=== PATIENT | male | born 1960 | race Caucasian/White ===

== ENCOUNTER → 2023-12-01 09:35 | Outpatient (REF) | payer OTHER, SELFPAY ==
[2023-12-01 10:26] LABS: % Basophils 0.7 % (0-2); % Eosinophils 14.6 % (0-6); % Immature Granulocytes 0.4 % (0-0.5); % Lymphocytes 8.5 % (20.5-51.1); % Monocytes 8.1 % (1.7-9.3); % Neutrophils 67.7 % (42.2-75.2); Absolute Basophils 0.1 10^3/uL (0-0.2); Absolute Eosinophils 1.1 10^3/uL (0-0.7); Absolute Lymphocytes 0.6 10^3/uL (1.2-3.4); Absolute Monocytes 0.6 10^3/uL (0.1-0.6); Absolute Neutrophils 4.9 10^3/uL (1.4-6.5); Hematocrit 33.9 % (39.0-52.0); Hemoglobin 11.1 g/dL (13.0-18.0); Mean Corp Hgb Conc. 32.7 g/dL (33.0-37.0); Mean Corpuscular Hgb 32.8 pg (27.0-31.0); Mean Corpuscular Volume 100.3 fL (80.0-94.0); Mean Platelet Volume 9.2 fL (7.4-10.4); Nucleated Red Blood Cells % 0 % (-); Platelet Count 170 10^3/uL (130-400); Red Blood Cell Count 3.38 10^6/uL (4.70-6.10); Red Cell Dist. Width 14.6 % (11.5-14.5); White Blood Cell Count 7.2 10^3/uL (4.8-10.8)
[2023-12-01 10:54] LABS: ALT (SGPT) 14 U/L (0-50); AST (SGOT) 19 U/L (17-59); Albumin 3.9 g/dl (3.5-5.0); Alkaline Phosphatase 88 U/L (38-126); Blood Urea Nitrogen 23 mg/dl (9-20); Calcium 9.6 mg/dl (8.4-10.2); Carbon Dioxide 26 mmol/L (22-30); Chloride 102 mmol/L (98-107); Glucose 90 mg/dl (70-99); Potassium 4.1 mmol/L (3.5-5.1); Sodium 138 mmol/L (135-145); Total Bilirubin 0.5 mg/dl (0.2-1.3); Total Protein 7.1 g/dl (6.3-8.2); eGFR > 60.00
== END ==
LOC: REG 09:35
PROVIDERS: ATTENDING PHYSICIAN Internal Medicine Hematology & Oncology; FAMILY PHYSICIAN Family Medicine
DX: C11.3 Malignant neoplasm of anterior wall of nasopharynx (principal); R53.82 Chronic fatigue, unspecified; D63.0 Anemia in neoplastic disease
CPT/HCPCS: 36415; 80053; 85025

== ENCOUNTER → 2023-12-04 09:27 | Outpatient (REF) | payer OTHER, SELFPAY ==
[2023-12-04 10:41] LABS: Uric Acid 6.6 mg/dl (3.5-8.5)
[2023-12-04 11:12] LABS: TSH Reflex To Free T4 2.69 uIU/ml (0.47-4.68)
== END ==
LOC: OIDL 09:27
PROVIDERS: ATTENDING PHYSICIAN Internal Medicine Hematology & Oncology
DX: C11.3 Malignant neoplasm of anterior wall of nasopharynx (principal)
CPT/HCPCS: 84443; 84550

== ENCOUNTER → 2023-12-13 07:48 | Outpatient (REF) | payer OTHER, SELFPAY | LOC: RAD 07:48 | PROVIDERS: ATTENDING PHYSICIAN Surgery Vascular Surgery; FAMILY PHYSICIAN Family Medicine | DX: I73.9 Peripheral vascular disease, unspecified (principal) | CPT/HCPCS: 93922; 93925 ==

== ENCOUNTER → 2023-12-31 08:33 | Outpatient (REF) | payer OTHER, SELFPAY ==
[2023-12-31 10:19] LABS: % Basophils 0.3 % (0-2); % Eosinophils 15.1 % (0-6); % Immature Granulocytes 0.5 % (0-0.5); % Lymphocytes 10.4 % (20.5-51.1); % Monocytes 7.8 % (1.7-9.3); % Neutrophils 65.9 % (42.2-75.2); Absolute Eosinophils 0.9 10^3/uL (0-0.7); Absolute Lymphocytes 0.6 10^3/uL (1.2-3.4); Absolute Monocytes 0.5 10^3/uL (0.1-0.6); Absolute Neutrophils 4.1 10^3/uL (1.4-6.5); Hematocrit 35.3 % (39.0-52.0); Hemoglobin 11.5 g/dL (13.0-18.0); Mean Corp Hgb Conc. 32.6 g/dL (33.0-37.0); Mean Corpuscular Hgb 32.3 pg (27.0-31.0); Mean Corpuscular Volume 99.2 fL (80.0-94.0); Mean Platelet Volume 9.9 fL (7.4-10.4); Nucleated Red Blood Cells % 0 % (-); Platelet Count 152 10^3/uL (130-400); Red Blood Cell Count 3.56 10^6/uL (4.70-6.10); Red Cell Dist. Width 13.5 % (11.5-14.5); White Blood Cell Count 6.2 10^3/uL (4.8-10.8)
[2023-12-31 10:51] LABS: Blood Urea Nitrogen 17 mg/dl (9-20); Iron 91 ug/dl (49-181)
[2023-12-31 11:02] LABS: Percent Saturation 44 % (20-50); Total Iron Binding Capacity 204 ug/dl (261-462)
== END ==
LOC: REG 08:33
PROVIDERS: ATTENDING PHYSICIAN Nurse Practitioner Adult Health; FAMILY PHYSICIAN Family Medicine
DX: C11.3 Malignant neoplasm of anterior wall of nasopharynx (principal); R53.82 Chronic fatigue, unspecified; D63.0 Anemia in neoplastic disease
CPT/HCPCS: 36415; 82565; 82728; 83540; 83550; 84520; 85025

== ENCOUNTER 2024-01-01 10:53 | Outpatient (RCR) | payer OTHER, SELFPAY ==
[2024-01-01 09:43] LABS: ALT (SGPT) 47 U/L (0-50); AST (SGOT) 39 U/L (17-59); Albumin 4.4 g/dl (3.5-5.0); Alkaline Phosphatase 112 U/L (38-126); Blood Urea Nitrogen 16 mg/dl (9-20); Calcium 9.4 mg/dl (8.4-10.2); Carbon Dioxide 27 mmol/L (22-30); Chloride 103 mmol/L (98-107); Glucose 96 mg/dl (70-99); Potassium 3.8 mmol/L (3.5-5.1); Sodium 137 mmol/L (135-145); Total Bilirubin 0.6 mg/dl (0.2-1.3); Total Protein 7.9 g/dl (6.3-8.2); eGFR 51.99
[2024-01-01 10:09] LABS: TSH Reflex To Free T4 2.49 uIU/ml (0.47-4.68)
== END 2024-01-27 23:59 | disposition home or self-care (01) ==
LOC: OID 10:53
PROVIDERS: ATTENDING PHYSICIAN Internal Medicine Hematology & Oncology; FAMILY PHYSICIAN Family Medicine
DX: C11.3 Malignant neoplasm of anterior wall of nasopharynx (principal)
CPT/HCPCS: 80053; 84443

== ENCOUNTER → 2024-01-26 08:21 | Outpatient (REF) | payer OTHER, SELFPAY ==
[2024-01-26 10:05] LABS: ALT (SGPT) < 10 U/L (0-50); AST (SGOT) 16 U/L (17-59); Alkaline Phosphatase 101 U/L (38-126); Blood Urea Nitrogen 13 mg/dl (9-20); Calcium 9.6 mg/dl (8.4-10.2); Carbon Dioxide 29 mmol/L (22-30); Chloride 100 mmol/L (98-107); Glucose 81 mg/dl (70-99); Potassium 3.9 mmol/L (3.5-5.1); Sodium 137 mmol/L (135-145); Total Bilirubin 0.4 mg/dl (0.2-1.3); Total Protein 7.3 g/dl (6.3-8.2); eGFR > 60.00
[2024-01-26 10:20] LABS: % Eosinophils 18.6 % (0-6); % Immature Granulocytes 0.4 % (0-0.5); % Monocytes 7.4 % (1.7-9.3); % Neutrophils 62.6 % (42.2-75.2); Absolute Basophils 0.1 10^3/uL (0-0.2); Absolute Eosinophils 1.3 10^3/uL (0-0.7); Absolute Lymphocytes 0.7 10^3/uL (1.2-3.4); Absolute Monocytes 0.5 10^3/uL (0.1-0.6); Absolute Neutrophils 4.5 10^3/uL (1.4-6.5); Hematocrit 33.5 % (39.0-52.0); Hemoglobin 11.1 g/dL (13.0-18.0); Mean Corp Hgb Conc. 33.1 g/dL (33.0-37.0); Mean Corpuscular Hgb 32.3 pg (27.0-31.0); Mean Corpuscular Volume 97.4 fL (80.0-94.0); Mean Platelet Volume 9.6 fL (7.4-10.4); Nucleated Red Blood Cells % 0 % (-); Platelet Count 199 10^3/uL (130-400); Red Blood Cell Count 3.44 10^6/uL (4.70-6.10); Red Cell Dist. Width 13.3 % (11.5-14.5); White Blood Cell Count 7.2 10^3/uL (4.8-10.8)
[2024-01-26 10:32] LABS: TSH Reflex To Free T4 0.99 uIU/ml (0.47-4.68)
== END ==
LOC: REG 08:21
PROVIDERS: ATTENDING PHYSICIAN Internal Medicine Hematology & Oncology; FAMILY PHYSICIAN Family Medicine
DX: C11.3 Malignant neoplasm of anterior wall of nasopharynx (principal); R53.82 Chronic fatigue, unspecified; D63.0 Anemia in neoplastic disease
CPT/HCPCS: 36415; 80053; 84443; 85025

== ENCOUNTER → 2024-02-23 08:34 | Outpatient (REF) | payer OTHER, SELFPAY ==
[2024-02-23 10:33] LABS: % Basophils 0.6 % (0-2); % Eosinophils 13.9 % (0-6); % Immature Granulocytes 0.3 % (0-0.5); % Lymphocytes 9.1 % (20.5-51.1); % Monocytes 8.4 % (1.7-9.3); % Neutrophils 67.7 % (42.2-75.2); Absolute Lymphocytes 0.6 10^3/uL (1.2-3.4); Absolute Monocytes 0.6 10^3/uL (0.1-0.6); Absolute Neutrophils 4.7 10^3/uL (1.4-6.5); Hematocrit 31.7 % (39.0-52.0); Hemoglobin 10.5 g/dL (13.0-18.0); Mean Corp Hgb Conc. 33.1 g/dL (33.0-37.0); Mean Corpuscular Hgb 31.9 pg (27.0-31.0); Mean Corpuscular Volume 96.4 fL (80.0-94.0); Mean Platelet Volume 9.2 fL (7.4-10.4); Nucleated Red Blood Cells % 0 % (-); Platelet Count 189 10^3/uL (130-400); Red Blood Cell Count 3.29 10^6/uL (4.70-6.10); Red Cell Dist. Width 13.3 % (11.5-14.5); White Blood Cell Count 6.9 10^3/uL (4.8-10.8)
[2024-02-23 10:57] LABS: ALT (SGPT) < 10 U/L (0-50); AST (SGOT) 16 U/L (17-59); Alkaline Phosphatase 98 U/L (38-126); Blood Urea Nitrogen 17 mg/dl (9-20); Calcium 9.7 mg/dl (8.4-10.2); Carbon Dioxide 25 mmol/L (22-30); Chloride 103 mmol/L (98-107); Glucose 88 mg/dl (70-99); Potassium 3.8 mmol/L (3.5-5.1); Sodium 137 mmol/L (135-145); Total Bilirubin 0.6 mg/dl (0.2-1.3); Total Protein 7.2 g/dl (6.3-8.2); eGFR 51.67
[2024-02-23 11:25] LABS: TSH Reflex To Free T4 1.18 uIU/ml (0.47-4.68)
== END ==
LOC: REG 08:34
PROVIDERS: ATTENDING PHYSICIAN Internal Medicine Hematology & Oncology
DX: C11.3 Malignant neoplasm of anterior wall of nasopharynx (principal); R53.82 Chronic fatigue, unspecified; D63.0 Anemia in neoplastic disease
CPT/HCPCS: 36415; 80053; 84443; 85025

== ENCOUNTER → 2024-03-22 08:08 | Outpatient (REF) | payer OTHER, SELFPAY ==
[2024-03-22 09:12] LABS: % Basophils 0.6 % (0-2); % Eosinophils 14.7 % (0-6); % Immature Granulocytes 0.4 % (0-0.5); % Lymphocytes 8.3 % (20.5-51.1); % Monocytes 7.1 % (1.7-9.3); % Neutrophils 68.9 % (42.2-75.2); Absolute Basophils 0.1 10^3/uL (0-0.2); Absolute Eosinophils 1.1 10^3/uL (0-0.7); Absolute Lymphocytes 0.6 10^3/uL (1.2-3.4); Absolute Monocytes 0.6 10^3/uL (0.1-0.6); Absolute Neutrophils 5.3 10^3/uL (1.4-6.5); Hematocrit 30.1 % (39.0-52.0); Hemoglobin 10.1 g/dL (13.0-18.0); Mean Corp Hgb Conc. 33.6 g/dL (33.0-37.0); Mean Corpuscular Hgb 32.1 pg (27.0-31.0); Mean Corpuscular Volume 95.6 fL (80.0-94.0); Mean Platelet Volume 9.3 fL (7.4-10.4); Nucleated Red Blood Cells % 0 % (-); Platelet Count 187 10^3/uL (130-400); Red Blood Cell Count 3.15 10^6/uL (4.70-6.10); Red Cell Dist. Width 13.3 % (11.5-14.5); White Blood Cell Count 7.7 10^3/uL (4.8-10.8)
[2024-03-22 10:10] LABS: ALT (SGPT) < 10 U/L (0-50); AST (SGOT) 15 U/L (17-59); Albumin 3.8 g/dl (3.5-5.0); Alkaline Phosphatase 97 U/L (38-126); Blood Urea Nitrogen 14 mg/dl (9-20); Calcium 9.2 mg/dl (8.4-10.2); Carbon Dioxide 27 mmol/L (22-30); Chloride 104 mmol/L (98-107); Glucose 90 mg/dl (70-99); Potassium 4.2 mmol/L (3.5-5.1); Sodium 139 mmol/L (135-145); Total Bilirubin 0.3 mg/dl (0.2-1.3); eGFR 47.82
[2024-03-22 10:40] LABS: TSH Reflex To Free T4 1.11 uIU/ml (0.47-4.68)
== END ==
LOC: REG 08:08
PROVIDERS: ATTENDING PHYSICIAN Internal Medicine Hematology & Oncology; FAMILY PHYSICIAN Family Medicine
DX: C11.3 Malignant neoplasm of anterior wall of nasopharynx (principal); R53.82 Chronic fatigue, unspecified; D63.0 Anemia in neoplastic disease
CPT/HCPCS: 36415; 80053; 84443; 85025

== ENCOUNTER → 2024-04-12 11:36 | Outpatient (REF) | payer OTHER, SELFPAY ==
[2024-04-12 12:18] LABS: % Basophils 0.6 % (0-2); % Eosinophils 15.1 % (0-6); % Immature Granulocytes 0.6 % (0-0.5); % Lymphocytes 8.4 % (20.5-51.1); % Monocytes 7.4 % (1.7-9.3); % Neutrophils 67.9 % (42.2-75.2); Absolute Eosinophils 1.1 10^3/uL (0-0.7); Absolute Lymphocytes 0.6 10^3/uL (1.2-3.4); Absolute Monocytes 0.5 10^3/uL (0.1-0.6); Absolute Neutrophils 4.9 10^3/uL (1.4-6.5); Hemoglobin 10.3 g/dL (13.0-18.0); Mean Corp Hgb Conc. 33.2 g/dL (33.0-37.0); Mean Corpuscular Hgb 31.2 pg (27.0-31.0); Mean Corpuscular Volume 93.9 fL (80.0-94.0); Mean Platelet Volume 8.8 fL (7.4-10.4); Nucleated Red Blood Cells % 0 % (-); Platelet Count 203 10^3/uL (130-400); Red Cell Dist. Width 13.5 % (11.5-14.5); White Blood Cell Count 7.2 10^3/uL (4.8-10.8)
[2024-04-12 12:57] LABS: ALT (SGPT) < 10 U/L (0-50); AST (SGOT) 18 U/L (17-59); Alkaline Phosphatase 111 U/L (38-126); Blood Urea Nitrogen 16 mg/dl (9-20); Calcium 9.6 mg/dl (8.4-10.2); Carbon Dioxide 28 mmol/L (22-30); Chloride 101 mmol/L (98-107); Glucose 99 mg/dl (70-99); Potassium 4.3 mmol/L (3.5-5.1); Sodium 138 mmol/L (135-145); Total Bilirubin 0.6 mg/dl (0.2-1.3); Total Protein 7.4 g/dl (6.3-8.2); eGFR 44.46
[2024-04-12 13:22] LABS: TSH Reflex To Free T4 0.43 uIU/ml (0.47-4.68)
[2024-04-12 14:06] LABS: Free T4 1.43 ng/dl (0.78-2.19)
== END ==
LOC: REG 11:36
PROVIDERS: ATTENDING PHYSICIAN Internal Medicine Hematology & Oncology
DX: C11.3 Malignant neoplasm of anterior wall of nasopharynx (principal); R53.82 Chronic fatigue, unspecified; D63.0 Anemia in neoplastic disease
CPT/HCPCS: 36415; 80053; 84439; 84443; 85025

== ENCOUNTER → 2024-04-19 10:58 | Outpatient (REF) | payer OTHER, SELFPAY ==
[2024-04-19 11:51] LABS: % Basophils 0.4 % (0-2); % Eosinophils 15.3 % (0-6); % Immature Granulocytes 0.4 % (0-0.5); % Lymphocytes 6.5 % (20.5-51.1); % Monocytes 6.4 % (1.7-9.3); Absolute Eosinophils 1.1 10^3/uL (0-0.7); Absolute Lymphocytes 0.5 10^3/uL (1.2-3.4); Absolute Monocytes 0.5 10^3/uL (0.1-0.6); Hematocrit 28.4 % (39.0-52.0); Hemoglobin 9.1 g/dL (13.0-18.0); Mean Corpuscular Hgb 30.8 pg (27.0-31.0); Mean Corpuscular Volume 96.3 fL (80.0-94.0); Mean Platelet Volume 9.4 fL (7.4-10.4); Nucleated Red Blood Cells % 0 % (-); Platelet Count 177 10^3/uL (130-400); Red Blood Cell Count 2.95 10^6/uL (4.70-6.10); Red Cell Dist. Width 13.5 % (11.5-14.5)
[2024-04-19 12:06] LABS: ALT (SGPT) < 10 U/L (0-50); AST (SGOT) 16 U/L (17-59); Albumin 3.8 g/dl (3.5-5.0); Alkaline Phosphatase 94 U/L (38-126); Blood Urea Nitrogen 15 mg/dl (9-20); Calcium 9.3 mg/dl (8.4-10.2); Carbon Dioxide 25 mmol/L (22-30); Chloride 102 mmol/L (98-107); Glucose 95 mg/dl (70-99); Potassium 4.2 mmol/L (3.5-5.1); Sodium 134 mmol/L (135-145); Total Bilirubin 0.5 mg/dl (0.2-1.3); Total Protein 6.9 g/dl (6.3-8.2); eGFR 51.67
== END ==
LOC: REG 10:58
PROVIDERS: ATTENDING PHYSICIAN Internal Medicine Hematology & Oncology; FAMILY PHYSICIAN Family Medicine
DX: C11.3 Malignant neoplasm of anterior wall of nasopharynx (principal); R53.82 Chronic fatigue, unspecified; D63.0 Anemia in neoplastic disease
CPT/HCPCS: 36415; 80053; 85025

== ENCOUNTER → 2024-05-17 10:25 | Outpatient (REF) | payer OTHER, SELFPAY ==
[2024-05-17 11:53] LABS: % Basophils 0.5 % (0-2); % Eosinophils 20.4 % (0-6); % Immature Granulocytes 0.7 % (0-0.5); % Lymphocytes 8.3 % (20.5-51.1); % Monocytes 5.7 % (1.7-9.3); % Neutrophils 64.4 % (42.2-75.2); Absolute Eosinophils 1.3 10^3/uL (0-0.7); Absolute Lymphocytes 0.5 10^3/uL (1.2-3.4); Absolute Monocytes 0.4 10^3/uL (0.1-0.6); Hematocrit 28.2 % (39.0-52.0); Hemoglobin 9.4 g/dL (13.0-18.0); Mean Corp Hgb Conc. 33.3 g/dL (33.0-37.0); Mean Corpuscular Hgb 30.6 pg (27.0-31.0); Mean Corpuscular Volume 91.9 fL (80.0-94.0); Mean Platelet Volume 9.3 fL (7.4-10.4); Nucleated Red Blood Cells % 0 % (-); Platelet Count 205 10^3/uL (130-400); Red Blood Cell Count 3.07 10^6/uL (4.70-6.10); Red Cell Dist. Width 13.8 % (11.5-14.5); White Blood Cell Count 6.1 10^3/uL (4.8-10.8)
[2024-05-17 12:21] LABS: ALT (SGPT) < 10 U/L (0-50); AST (SGOT) 16 U/L (17-59); Alkaline Phosphatase 106 U/L (38-126); Blood Urea Nitrogen 16 mg/dl (9-20); Calcium 9.2 mg/dl (8.4-10.2); Carbon Dioxide 29 mmol/L (22-30); Chloride 101 mmol/L (98-107); Glucose 88 mg/dl (70-99); Potassium 4.3 mmol/L (3.5-5.1); Sodium 136 mmol/L (135-145); Total Bilirubin 0.4 mg/dl (0.2-1.3); Total Protein 6.9 g/dl (6.3-8.2); eGFR 44.46
[2024-05-17 12:54] LABS: TSH Reflex To Free T4 0.45 uIU/ml (0.47-4.68)
[2024-05-17 13:22] LABS: Free T4 1.33 ng/dl (0.78-2.19)
== END ==
LOC: REG 10:25
PROVIDERS: ATTENDING PHYSICIAN Internal Medicine Hematology & Oncology
DX: C11.3 Malignant neoplasm of anterior wall of nasopharynx (principal); R53.82 Chronic fatigue, unspecified; D63.0 Anemia in neoplastic disease
CPT/HCPCS: 36415; 80053; 84439; 84443; 85025

== ENCOUNTER → 2024-06-14 09:02 | Outpatient (REF) | payer OTHER, SELFPAY ==
[2024-06-14 11:42] LABS: % Basophils 0.7 % (0-2); % Eosinophils 19.6 % (0-6); % Immature Granulocytes 0.6 % (0-0.5); % Lymphocytes 8.3 % (20.5-51.1); % Neutrophils 63.8 % (42.2-75.2); Absolute Basophils 0.1 10^3/uL (0-0.2); Absolute Eosinophils 1.4 10^3/uL (0-0.7); Absolute Lymphocytes 0.6 10^3/uL (1.2-3.4); Absolute Monocytes 0.5 10^3/uL (0.1-0.6); Absolute Neutrophils 4.6 10^3/uL (1.4-6.5); Hematocrit 28.8 % (39.0-52.0); Hemoglobin 9.6 g/dL (13.0-18.0); Mean Corp Hgb Conc. 33.3 g/dL (33.0-37.0); Mean Corpuscular Volume 92.9 fL (80.0-94.0); Mean Platelet Volume 9.4 fL (7.4-10.4); Nucleated Red Blood Cells % 0 % (-); Platelet Count 211 10^3/uL (130-400); Red Cell Dist. Width 13.7 % (11.5-14.5); White Blood Cell Count 7.1 10^3/uL (4.8-10.8)
[2024-06-14 12:15] LABS: ALT (SGPT) < 10 U/L (0-50); AST (SGOT) 17 U/L (17-59); Albumin 3.9 g/dl (3.5-5.0); Alkaline Phosphatase 103 U/L (38-126); Blood Urea Nitrogen 13 mg/dl (9-20); Calcium 9.2 mg/dl (8.4-10.2); Carbon Dioxide 27 mmol/L (22-30); Chloride 98 mmol/L (98-107); Glucose 79 mg/dl (70-99); Potassium 4.2 mmol/L (3.5-5.1); Sodium 135 mmol/L (135-145); Total Bilirubin 0.3 mg/dl (0.2-1.3); Total Protein 6.9 g/dl (6.3-8.2); eGFR 44.46
[2024-06-14 12:55] LABS: TSH Reflex To Free T4 0.49 uIU/ml (0.47-4.68)
== END ==
LOC: OLAB 09:02
PROVIDERS: ATTENDING PHYSICIAN Internal Medicine Hematology & Oncology; FAMILY PHYSICIAN Family Medicine
DX: C11.3 Malignant neoplasm of anterior wall of nasopharynx (principal); R53.82 Chronic fatigue, unspecified; D63.0 Anemia in neoplastic disease
CPT/HCPCS: 36415; 80053; 84443; 85025

== ENCOUNTER → 2024-07-14 09:11 | Outpatient (REF) | payer OTHER, SELFPAY ==
[2024-07-14 10:58] LABS: % Basophils 0.8 % (0-2); % Eosinophils 19.8 % (0-6); % Immature Granulocytes 0.3 % (0-0.5); % Lymphocytes 7.9 % (20.5-51.1); % Monocytes 5.9 % (1.7-9.3); % Neutrophils 65.3 % (42.2-75.2); Absolute Basophils 0.1 10^3/uL (0-0.2); Absolute Eosinophils 1.4 10^3/uL (0-0.7); Absolute Lymphocytes 0.6 10^3/uL (1.2-3.4); Absolute Monocytes 0.4 10^3/uL (0.1-0.6); Absolute Neutrophils 4.6 10^3/uL (1.4-6.5); Hematocrit 28.4 % (39.0-52.0); Hemoglobin 9.4 g/dL (13.0-18.0); Mean Corp Hgb Conc. 33.1 g/dL (33.0-37.0); Mean Corpuscular Hgb 30.2 pg (27.0-31.0); Mean Corpuscular Volume 91.3 fL (80.0-94.0); Mean Platelet Volume 9.6 fL (7.4-10.4); Nucleated Red Blood Cells % 0 % (-); Platelet Count 176 10^3/uL (130-400); Red Blood Cell Count 3.11 10^6/uL (4.70-6.10); Red Cell Dist. Width 13.8 % (11.5-14.5); White Blood Cell Count 7.1 10^3/uL (4.8-10.8)
[2024-07-14 12:04] LABS: ALT (SGPT) < 10 U/L (0-50); AST (SGOT) 16 U/L (17-59); Alkaline Phosphatase 111 U/L (38-126); Blood Urea Nitrogen 15 mg/dl (9-20); Calcium 9.2 mg/dl (8.4-10.2); Carbon Dioxide 25 mmol/L (22-30); Chloride 100 mmol/L (98-107); Glucose 82 mg/dl (70-99); Potassium 4.1 mmol/L (3.5-5.1); Sodium 137 mmol/L (135-145); Total Bilirubin 0.4 mg/dl (0.2-1.3); Total Protein 7.1 g/dl (6.3-8.2); eGFR 51.67
[2024-07-14 12:19] LABS: TSH Reflex To Free T4 0.37 uIU/ml (0.47-4.68)
[2024-07-14 12:46] LABS: Free T4 1.23 ng/dl (0.78-2.19)
== END ==
LOC: REG 09:11
PROVIDERS: ATTENDING PHYSICIAN Internal Medicine Hematology & Oncology; FAMILY PHYSICIAN Family Medicine
DX: C11.3 Malignant neoplasm of anterior wall of nasopharynx (principal); R53.82 Chronic fatigue, unspecified; D63.0 Anemia in neoplastic disease
CPT/HCPCS: 36415; 80053; 84439; 84443; 85025

== ENCOUNTER → 2024-07-31 09:04 | Outpatient (REF) | payer OTHER, SELFPAY ==
[2024-07-31 10:24] LABS: Urine Albumin Trace (Neg - Trace); Urine Bilirubin Negative (Negative); Urine Character Clear (Clear); Urine Color Yellow; Urine Glucose Negative (Negative); Urine Ketone Negative (Negative); Urine Leukocyte Negative (Negative); Urine Nitrite Negative (Negative); Urine Occult Blood Trace (Negative); Urine Specific Gravity 1.015 (<1.030); Urine Urobilinogen Negative (Neg - 1+)
[2024-07-31 10:45] LABS: Urine Red Blood Cell 0-2 /HPF (0-2); Urine White Cell 0-2 /HPF (0-5)
[2024-07-31 11:07] LABS: Protein/creatinine Ratio 0.2; Urine Protein 28 mg/dl
[2024-07-31 11:11] LABS: Microalbumin, Random Urine 3.5 mg/dl (0.6-1.7); Microalbumin/creatinine Ratio 26.6 mg/g
[2024-07-31 11:43] LABS: Blood Urea Nitrogen 20 mg/dl (9-20); Calcium 9.7 mg/dl (8.4-10.2); Carbon Dioxide 25 mmol/L (22-30); Chloride 96 mmol/L (98-107); Glucose 95 mg/dl (70-99); Potassium 4.3 mmol/L (3.5-5.1); Sodium 138 mmol/L (135-145); eGFR 44.46
[2024-07-31 12:01] LABS: Glycohemoglobin (HgbA1c) 5.3 % (4.0-5.6)
== END ==
LOC: REG 09:04
PROVIDERS: ATTENDING PHYSICIAN Internal Medicine Hematology & Oncology; FAMILY PHYSICIAN Family Medicine; REFERRING PHYSICIAN Internal Medicine Nephrology
DX: N18.2 Chronic kidney disease, stage 2 (mild) (principal); C11.3 Malignant neoplasm of anterior wall of nasopharynx; R53.82 Chronic fatigue, unspecified; D63.0 Anemia in neoplastic disease
CPT/HCPCS: 36415; 80048; 81003; 81015; 82043; 82570; 83036; 84156

== ENCOUNTER → 2024-08-09 08:22 | Outpatient (REF) | payer OTHER, SELFPAY ==
[2024-08-09 10:03] LABS: % Basophils 0.7 % (0-2); % Eosinophils 17.9 % (0-6); % Immature Granulocytes 0.7 % (0-0.5); % Lymphocytes 9.9 % (20.5-51.1); % Neutrophils 64.8 % (42.2-75.2); Absolute Lymphocytes 0.5 10^3/uL (1.2-3.4); Absolute Monocytes 0.3 10^3/uL (0.1-0.6); Absolute Neutrophils 3.6 10^3/uL (1.4-6.5); Hematocrit 27.1 % (39.0-52.0); Hemoglobin 8.9 g/dL (13.0-18.0); Mean Corp Hgb Conc. 32.8 g/dL (33.0-37.0); Mean Corpuscular Hgb 29.5 pg (27.0-31.0); Mean Corpuscular Volume 89.7 fL (80.0-94.0); Mean Platelet Volume 9.3 fL (7.4-10.4); Nucleated Red Blood Cells % 0 % (-); Platelet Count 213 10^3/uL (130-400); Red Blood Cell Count 3.02 10^6/uL (4.70-6.10); Red Cell Dist. Width 14.4 % (11.5-14.5); White Blood Cell Count 5.5 10^3/uL (4.8-10.8)
[2024-08-09 10:43] LABS: ALT (SGPT) 12 U/L (0-50); AST (SGOT) 20 U/L (17-59); Albumin 3.8 g/dl (3.5-5.0); Alkaline Phosphatase 101 U/L (38-126); Blood Urea Nitrogen 12 mg/dl (9-20); Calcium 8.9 mg/dl (8.4-10.2); Carbon Dioxide 25 mmol/L (22-30); Chloride 100 mmol/L (98-107); Glucose 84 mg/dl (70-99); Potassium 4.4 mmol/L (3.5-5.1); Sodium 139 mmol/L (135-145); Total Bilirubin < 0.1 mg/dl (0.2-1.3); eGFR 47.82
[2024-08-09 11:02] LABS: TSH Reflex To Free T4 1.45 uIU/ml (0.47-4.68)
== END ==
LOC: REG 08:22
PROVIDERS: ATTENDING PHYSICIAN Internal Medicine Hematology & Oncology; FAMILY PHYSICIAN Family Medicine
DX: C11.3 Malignant neoplasm of anterior wall of nasopharynx (principal); R53.82 Chronic fatigue, unspecified; D63.0 Anemia in neoplastic disease
CPT/HCPCS: 36415; 80053; 84443; 85025

== ENCOUNTER → 2024-08-12 14:53 | Outpatient (REF) | payer OTHER, SELFPAY ==
[2024-08-12 16:30] LABS: Iron 59 ug/dl (49-181)
[2024-08-12 16:39] LABS: Percent Saturation 25 % (20-50); Total Iron Binding Capacity 230 ug/dl (261-462)
[2024-08-12 17:22] LABS: Vitamin B12 447 pg/ml (239-931)
== END ==
LOC: OIDL 14:53
PROVIDERS: ATTENDING PHYSICIAN Nurse Practitioner Adult Health
DX: C11.3 Malignant neoplasm of anterior wall of nasopharynx (principal); R53.82 Chronic fatigue, unspecified; D63.0 Anemia in neoplastic disease
CPT/HCPCS: 82607; 82728; 82746; 83540; 83550

== ENCOUNTER → 2024-09-08 08:19 | Outpatient (REF) | payer OTHER, SELFPAY ==
[2024-09-08 10:17] LABS: % Basophils 0.9 % (0-2); % Eosinophils 18.1 % (0-6); % Immature Granulocytes 0.7 % (0-0.5); % Lymphocytes 8.5 % (20.5-51.1); % Monocytes 6.4 % (1.7-9.3); % Neutrophils 65.4 % (42.2-75.2); Absolute Basophils 0.1 10^3/uL (0-0.2); Absolute Eosinophils 1.4 10^3/uL (0-0.7); Absolute Immature Granulocytes 0.1 10^3/uL (0-0.05); Absolute Lymphocytes 0.7 10^3/uL (1.2-3.4); Absolute Monocytes 0.5 10^3/uL (0.1-0.6); Hematocrit 28.6 % (39.0-52.0); Hemoglobin 9.2 g/dL (13.0-18.0); Mean Corp Hgb Conc. 32.2 g/dL (33.0-37.0); Mean Corpuscular Hgb 28.8 pg (27.0-31.0); Mean Corpuscular Volume 89.7 fL (80.0-94.0); Mean Platelet Volume 9.3 fL (7.4-10.4); Nucleated Red Blood Cells % 0 % (-); Platelet Count 210 10^3/uL (130-400); Red Blood Cell Count 3.19 10^6/uL (4.70-6.10); Red Cell Dist. Width 14.8 % (11.5-14.5); White Blood Cell Count 7.6 10^3/uL (4.8-10.8)
[2024-09-08 10:39] LABS: ALT (SGPT) 11 U/L (0-50); AST (SGOT) 19 U/L (17-59); Alkaline Phosphatase 121 U/L (38-126); Blood Urea Nitrogen 15 mg/dl (9-20); Calcium 9.1 mg/dl (8.4-10.2); Carbon Dioxide 26 mmol/L (22-30); Chloride 99 mmol/L (98-107); Glucose 90 mg/dl (70-99); Potassium 4.3 mmol/L (3.5-5.1); Sodium 138 mmol/L (135-145); Total Bilirubin 0.3 mg/dl (0.2-1.3); Total Protein 7.3 g/dl (6.3-8.2); eGFR 51.67
[2024-09-08 11:03] LABS: TSH Reflex To Free T4 3.11 uIU/ml (0.47-4.68)
== END ==
LOC: REG 08:19
PROVIDERS: ATTENDING PHYSICIAN Internal Medicine Hematology & Oncology; FAMILY PHYSICIAN Family Medicine
DX: C11.3 Malignant neoplasm of anterior wall of nasopharynx (principal); R53.82 Chronic fatigue, unspecified; D63.0 Anemia in neoplastic disease
CPT/HCPCS: 36415; 80053; 84443; 85025

== ENCOUNTER → 2024-09-15 15:08 | Outpatient (REF) | payer OTHER, SELFPAY | LOC: RAD 15:08 | PROVIDERS: ATTENDING PHYSICIAN Internal Medicine Hematology & Oncology; FAMILY PHYSICIAN Family Medicine | DX: C11.3 Malignant neoplasm of anterior wall of nasopharynx (principal); R53.82 Chronic fatigue, unspecified; D63.0 Anemia in neoplastic disease; D52.9 Folate deficiency anemia, unspecified | CPT/HCPCS: 72220 ==

== ENCOUNTER → 2024-10-04 11:21 | Outpatient (REF) | payer OTHER, SELFPAY ==
[2024-10-04 12:39] LABS: % Eosinophils 14.5 % (0-6); % Immature Granulocytes 0.5 % (0-0.5); % Monocytes 5.2 % (1.7-9.3); % Neutrophils 69.8 % (42.2-75.2); Absolute Basophils 0.1 10^3/uL (0-0.2); Absolute Eosinophils 0.9 10^3/uL (0-0.7); Absolute Lymphocytes 0.6 10^3/uL (1.2-3.4); Absolute Monocytes 0.3 10^3/uL (0.1-0.6); Absolute Neutrophils 4.3 10^3/uL (1.4-6.5); Hematocrit 28.4 % (39.0-52.0); Hemoglobin 9.2 g/dL (13.0-18.0); Mean Corp Hgb Conc. 32.4 g/dL (33.0-37.0); Mean Corpuscular Hgb 28.7 pg (27.0-31.0); Mean Corpuscular Volume 88.5 fL (80.0-94.0); Mean Platelet Volume 9.2 fL (7.4-10.4); Nucleated Red Blood Cells % 0 % (-); Platelet Count 228 10^3/uL (130-400); Red Blood Cell Count 3.21 10^6/uL (4.70-6.10); Red Cell Dist. Width 14.6 % (11.5-14.5); White Blood Cell Count 6.1 10^3/uL (4.8-10.8)
[2024-10-04 13:04] LABS: ALT (SGPT) < 10 U/L (0-50); AST (SGOT) 19 U/L (17-59); Albumin 4.3 g/dl (3.5-5.0); Alkaline Phosphatase 117 U/L (38-126); Blood Urea Nitrogen 19 mg/dl (9-20); Calcium 9.2 mg/dl (8.4-10.2); Carbon Dioxide 25 mmol/L (22-30); Chloride 99 mmol/L (98-107); Glucose 84 mg/dl (70-99); Potassium 4.3 mmol/L (3.5-5.1); Sodium 135 mmol/L (135-145); Total Bilirubin 0.4 mg/dl (0.2-1.3); Total Protein 7.8 g/dl (6.3-8.2); eGFR 44.46
[2024-10-04 13:33] LABS: TSH Reflex To Free T4 3.71 uIU/ml (0.47-4.68)
== END ==
LOC: REG 11:21
PROVIDERS: ATTENDING PHYSICIAN Internal Medicine Hematology & Oncology; FAMILY PHYSICIAN Family Medicine
DX: C11.3 Malignant neoplasm of anterior wall of nasopharynx (principal); R53.82 Chronic fatigue, unspecified; D63.0 Anemia in neoplastic disease
CPT/HCPCS: 80053; 84443; 85025

== ENCOUNTER → 2024-11-08 08:53 | Outpatient (REF) | payer OTHER, SELFPAY ==
[2024-11-08 10:21] LABS: % Basophils 0.9 % (0-2); % Eosinophils 14.5 % (0-6); % Immature Granulocytes 0.5 % (0-0.5); % Lymphocytes 8.6 % (20.5-51.1); % Monocytes 6.3 % (1.7-9.3); % Neutrophils 69.2 % (42.2-75.2); Absolute Basophils 0.1 10^3/uL (0-0.2); Absolute Eosinophils 1.2 10^3/uL (0-0.7); Absolute Lymphocytes 0.7 10^3/uL (1.2-3.4); Absolute Monocytes 0.5 10^3/uL (0.1-0.6); Absolute Neutrophils 5.5 10^3/uL (1.4-6.5); Hematocrit 27.4 % (39.0-52.0); Hemoglobin 8.7 g/dL (13.0-18.0); Mean Corp Hgb Conc. 31.8 g/dL (33.0-37.0); Mean Corpuscular Hgb 27.9 pg (27.0-31.0); Mean Corpuscular Volume 87.8 fL (80.0-94.0); Mean Platelet Volume 9.3 fL (7.4-10.4); Nucleated Red Blood Cells % 0 % (-); Platelet Count 249 10^3/uL (130-400); Red Blood Cell Count 3.12 10^6/uL (4.70-6.10); Red Cell Dist. Width 14.4 % (11.5-14.5); White Blood Cell Count 7.9 10^3/uL (4.8-10.8)
[2024-11-08 11:06] LABS: ALT (SGPT) < 10 U/L (0-50); AST (SGOT) 20 U/L (17-59); Albumin 3.9 g/dl (3.5-5.0); Alkaline Phosphatase 95 U/L (38-126); Blood Urea Nitrogen 16 mg/dl (9-20); Calcium 8.8 mg/dl (8.4-10.2); Carbon Dioxide 26 mmol/L (22-30); Chloride 96 mmol/L (98-107); Glucose 93 mg/dl (70-99); Sodium 135 mmol/L (135-145); Total Bilirubin 0.4 mg/dl (0.2-1.3); Total Protein 7.1 g/dl (6.3-8.2); eGFR 44.46
[2024-11-08 11:38] LABS: TSH Reflex To Free T4 4.07 uIU/ml (0.47-4.68)
== END ==
LOC: REG 08:53
PROVIDERS: ATTENDING PHYSICIAN Internal Medicine Hematology & Oncology; FAMILY PHYSICIAN Family Medicine
DX: C11.3 Malignant neoplasm of anterior wall of nasopharynx (principal); R53.82 Chronic fatigue, unspecified; D63.0 Anemia in neoplastic disease
CPT/HCPCS: 36415; 80053; 84443; 85025

== ENCOUNTER → 2024-12-08 13:52 | Outpatient (REF) | payer OTHER, SELFPAY ==
[2024-12-08 15:18] LABS: % Basophils 0.9 % (0-2); % Eosinophils 10.9 % (0-6); % Immature Granulocytes 0.4 % (0-0.5); % Lymphocytes 8.8 % (20.5-51.1); % Monocytes 6.5 % (1.7-9.3); % Neutrophils 72.5 % (42.2-75.2); Absolute Basophils 0.1 10^3/uL (0-0.2); Absolute Eosinophils 0.7 10^3/uL (0-0.7); Absolute Lymphocytes 0.6 10^3/uL (1.2-3.4); Absolute Monocytes 0.4 10^3/uL (0.1-0.6); Absolute Neutrophils 4.9 10^3/uL (1.4-6.5); Hematocrit 25.1 % (39.0-52.0); Mean Corp Hgb Conc. 31.9 g/dL (33.0-37.0); Mean Corpuscular Volume 87.8 fL (80.0-94.0); Mean Platelet Volume 9.2 fL (7.4-10.4); Nucleated Red Blood Cells % 0 % (-); Platelet Count 240 10^3/uL (130-400); Red Blood Cell Count 2.86 10^6/uL (4.70-6.10); Red Cell Dist. Width 15.2 % (11.5-14.5); White Blood Cell Count 6.8 10^3/uL (4.8-10.8)
[2024-12-08 15:40] LABS: ALT (SGPT) < 10 U/L (0-50); AST (SGOT) 18 U/L (17-59); Albumin 3.9 g/dl (3.5-5.0); Alkaline Phosphatase 100 U/L (38-126); Blood Urea Nitrogen 17 mg/dl (9-20); Carbon Dioxide 26 mmol/L (22-30); Chloride 98 mmol/L (98-107); Glucose 84 mg/dl (70-99); Potassium 4.3 mmol/L (3.5-5.1); Sodium 135 mmol/L (135-145); Total Bilirubin 0.5 mg/dl (0.2-1.3); eGFR 51.67
[2024-12-09 02:11] LABS: TSH Reflex To Free T4 3.44 uIU/ml (0.47-4.68)
== END ==
LOC: REG 13:52
PROVIDERS: ATTENDING PHYSICIAN Internal Medicine Hematology & Oncology; FAMILY PHYSICIAN Family Medicine
DX: C11.3 Malignant neoplasm of anterior wall of nasopharynx (principal); R53.82 Chronic fatigue, unspecified; D63.0 Anemia in neoplastic disease; D52.9 Folate deficiency anemia, unspecified
CPT/HCPCS: 36415; 80053; 84443; 85025

== ENCOUNTER → 2024-12-22 09:13 | Outpatient (REF) | payer OTHER, SELFPAY ==
[2024-12-22 10:17] LABS: % Basophils 0.7 % (0-2); % Eosinophils 10.7 % (0-6); % Immature Granulocytes 0.4 % (0-0.5); % Lymphocytes 6.9 % (20.5-51.1); % Monocytes 8.5 % (1.7-9.3); % Neutrophils 72.8 % (42.2-75.2); Absolute Basophils 0.1 10^3/uL (0-0.2); Absolute Eosinophils 0.7 10^3/uL (0-0.7); Absolute Lymphocytes 0.5 10^3/uL (1.2-3.4); Absolute Monocytes 0.6 10^3/uL (0.1-0.6); Hematocrit 25.9 % (39.0-52.0); Hemoglobin 8.1 g/dL (13.0-18.0); Mean Corp Hgb Conc. 31.3 g/dL (33.0-37.0); Mean Corpuscular Hgb 27.9 pg (27.0-31.0); Mean Corpuscular Volume 89.3 fL (80.0-94.0); Mean Platelet Volume 9.1 fL (7.4-10.4); Nucleated Red Blood Cells % 0 % (-); Platelet Count 209 10^3/uL (130-400); White Blood Cell Count 6.8 10^3/uL (4.8-10.8)
[2024-12-22 11:03] LABS: ALT (SGPT) < 10 U/L (0-50); AST (SGOT) 19 U/L (17-59); Albumin 3.7 g/dl (3.5-5.0); Alkaline Phosphatase 91 U/L (38-126); Blood Urea Nitrogen 19 mg/dl (9-20); Calcium 8.9 mg/dl (8.4-10.2); Carbon Dioxide 25 mmol/L (22-30); Chloride 99 mmol/L (98-107); Glucose 93 mg/dl (70-99); Sodium 135 mmol/L (135-145); Total Bilirubin 0.6 mg/dl (0.2-1.3); Total Protein 6.8 g/dl (6.3-8.2); eGFR 51.67
== END ==
LOC: REG 09:13
PROVIDERS: ATTENDING PHYSICIAN Internal Medicine Hematology & Oncology; FAMILY PHYSICIAN Family Medicine
DX: C11.3 Malignant neoplasm of anterior wall of nasopharynx (principal); R53.82 Chronic fatigue, unspecified; D63.0 Anemia in neoplastic disease; D52.9 Folate deficiency anemia, unspecified
CPT/HCPCS: 36415; 80053; 85025

== ENCOUNTER → 2024-12-27 08:46 | Outpatient (REF) | payer OTHER, SELFPAY ==
[2024-12-27 10:47] LABS: % Basophils 0.3 % (0-2); % Eosinophils 9.9 % (0-6); % Immature Granulocytes 0.7 % (0-0.5); % Lymphocytes 4.9 % (20.5-51.1); % Neutrophils 79.2 % (42.2-75.2); Absolute Eosinophils 0.6 10^3/uL (0-0.7); Absolute Lymphocytes 0.3 10^3/uL (1.2-3.4); Absolute Monocytes 0.3 10^3/uL (0.1-0.6); Absolute Neutrophils 4.9 10^3/uL (1.4-6.5); Hematocrit 25.8 % (39.0-52.0); Hemoglobin 8.3 g/dL (13.0-18.0); Mean Corp Hgb Conc. 32.2 g/dL (33.0-37.0); Mean Corpuscular Hgb 28.2 pg (27.0-31.0); Mean Corpuscular Volume 87.8 fL (80.0-94.0); Mean Platelet Volume 9.7 fL (7.4-10.4); Nucleated Red Blood Cells % 0 % (-); Platelet Count 195 10^3/uL (130-400); Red Blood Cell Count 2.94 10^6/uL (4.70-6.10); Red Cell Dist. Width 15.9 % (11.5-14.5); White Blood Cell Count 6.1 10^3/uL (4.8-10.8)
[2024-12-27 11:12] LABS: ALT (SGPT) 11 U/L (0-50); AST (SGOT) 20 U/L (17-59); Albumin 3.7 g/dl (3.5-5.0); Alkaline Phosphatase 79 U/L (38-126); Blood Urea Nitrogen 20 mg/dl (9-20); Calcium 8.5 mg/dl (8.4-10.2); Carbon Dioxide 27 mmol/L (22-30); Chloride 97 mmol/L (98-107); Glucose 87 mg/dl (70-99); Sodium 134 mmol/L (135-145); Total Bilirubin 0.6 mg/dl (0.2-1.3); Total Protein 6.5 g/dl (6.3-8.2); eGFR > 60.00
== END ==
LOC: REG 08:46
PROVIDERS: ATTENDING PHYSICIAN Internal Medicine Hematology & Oncology; FAMILY PHYSICIAN Family Medicine
DX: C11.3 Malignant neoplasm of anterior wall of nasopharynx (principal); R53.82 Chronic fatigue, unspecified; D63.0 Anemia in neoplastic disease; D52.9 Folate deficiency anemia, unspecified
CPT/HCPCS: 36415; 80053; 85025

== ENCOUNTER → 2025-01-05 10:07 | Outpatient (REF) | payer OTHER, SELFPAY ==
[2025-01-05 10:50] LABS: % Basophils 0.7 % (0-2); % Eosinophils 10.5 % (0-6); % Immature Granulocytes 0.7 % (0-0.5); % Lymphocytes 13.8 % (20.5-51.1); % Monocytes 10.9 % (1.7-9.3); % Neutrophils 63.4 % (42.2-75.2); Absolute Eosinophils 0.3 10^3/uL (0-0.7); Absolute Lymphocytes 0.4 10^3/uL (1.2-3.4); Absolute Monocytes 0.3 10^3/uL (0.1-0.6); Absolute Neutrophils 1.8 10^3/uL (1.4-6.5); Hematocrit 25.2 % (39.0-52.0); Hemoglobin 7.8 g/dL (13.0-18.0); Mean Corpuscular Hgb 27.4 pg (27.0-31.0); Mean Corpuscular Volume 88.4 fL (80.0-94.0); Nucleated Red Blood Cells % 0 % (-); Red Blood Cell Count 2.85 10^6/uL (4.70-6.10); Red Cell Dist. Width 15.6 % (11.5-14.5); White Blood Cell Count 2.8 10^3/uL (4.8-10.8)
[2025-01-05 11:03] LABS: Mean Platelet Volume 10.5 fL (7.4-10.4)
[2025-01-05 11:04] LABS: Platelet Count 92 10^3/uL (130-400)
[2025-01-05 12:28] LABS: ALT (SGPT) 10 U/L (0-50); AST (SGOT) 22 U/L (17-59); Alkaline Phosphatase 95 U/L (38-126); Blood Urea Nitrogen 15 mg/dl (9-20); Calcium 9.1 mg/dl (8.4-10.2); Carbon Dioxide 23 mmol/L (22-30); Chloride 98 mmol/L (98-107); Glucose 102 mg/dl (70-99); Potassium 3.7 mmol/L (3.5-5.1); Sodium 134 mmol/L (135-145); Total Bilirubin 0.8 mg/dl (0.2-1.3); eGFR > 60.00
== END ==
LOC: REG 10:07
PROVIDERS: ATTENDING PHYSICIAN Internal Medicine Hematology & Oncology; FAMILY PHYSICIAN Family Medicine
DX: C11.3 Malignant neoplasm of anterior wall of nasopharynx (principal); R53.82 Chronic fatigue, unspecified; D63.0 Anemia in neoplastic disease; D52.9 Folate deficiency anemia, unspecified
CPT/HCPCS: 36415; 80053; 85025

== ENCOUNTER 2025-01-08 07:53 | Outpatient (RCR) | payer OTHER, SELFPAY ==
[2025-01-08] VITALS (7 sets, daily range): BP systolic 110–122; BP diastolic 70–85
[2025-01-08] MEDS: TYLENOL 650 MG PO (09:03)
== END 2025-01-26 23:59 | disposition home or self-care (01) ==
LOC: OID 07:53
PROVIDERS: ATTENDING PHYSICIAN Internal Medicine Hematology & Oncology
DX: C11.3 Malignant neoplasm of anterior wall of nasopharynx (principal); R53.82 Chronic fatigue, unspecified; D63.0 Anemia in neoplastic disease; D52.9 Folate deficiency anemia, unspecified
CPT/HCPCS: 36415; 36430; 86850; 86900; 86901; 86920; P9016

== ENCOUNTER → 2025-01-12 09:08 | Outpatient (REF) | payer OTHER, SELFPAY ==
[2025-01-12 10:19] LABS: % Basophils 0.8 % (0-2); % Immature Granulocytes 0.8 % (0-0.5); % Lymphocytes 13.7 % (20.5-51.1); % Monocytes 14.6 % (1.7-9.3); % Neutrophils 62.1 % (42.2-75.2); Absolute Eosinophils 0.3 10^3/uL (0-0.7); Absolute Lymphocytes 0.5 10^3/uL (1.2-3.4); Absolute Monocytes 0.5 10^3/uL (0.1-0.6); Absolute Neutrophils 2.3 10^3/uL (1.4-6.5); Hematocrit 33.5 % (39.0-52.0); Hemoglobin 10.8 g/dL (13.0-18.0); Mean Corp Hgb Conc. 32.2 g/dL (33.0-37.0); Mean Corpuscular Hgb 27.8 pg (27.0-31.0); Mean Corpuscular Volume 86.3 fL (80.0-94.0); Mean Platelet Volume 10.2 fL (7.4-10.4); Nucleated Red Blood Cells % 0 % (-); Platelet Count 109 10^3/uL (130-400); Red Blood Cell Count 3.88 10^6/uL (4.70-6.10); Red Cell Dist. Width 16.1 % (11.5-14.5); White Blood Cell Count 3.6 10^3/uL (4.8-10.8)
[2025-01-12 10:56] LABS: ALT (SGPT) 11 U/L (0-50); AST (SGOT) 22 U/L (17-59); Albumin 3.8 g/dl (3.5-5.0); Alkaline Phosphatase 92 U/L (38-126); Blood Urea Nitrogen 16 mg/dl (9-20); Calcium 8.9 mg/dl (8.4-10.2); Carbon Dioxide 22 mmol/L (22-30); Chloride 96 mmol/L (98-107); Glucose 94 mg/dl (70-99); Potassium 3.9 mmol/L (3.5-5.1); Sodium 133 mmol/L (135-145); Total Bilirubin 0.9 mg/dl (0.2-1.3); Total Protein 7.1 g/dl (6.3-8.2); eGFR > 60.00
[2025-01-12 11:42] LABS: TSH Reflex To Free T4 4.85 uIU/ml (0.47-4.68)
[2025-01-12 12:12] LABS: Free T4 1.09 ng/dl (0.78-2.19)
== END ==
LOC: REG 09:08
PROVIDERS: ATTENDING PHYSICIAN Internal Medicine Hematology & Oncology; FAMILY PHYSICIAN Family Medicine
DX: C11.3 Malignant neoplasm of anterior wall of nasopharynx (principal); R53.82 Chronic fatigue, unspecified; D63.0 Anemia in neoplastic disease; D52.9 Folate deficiency anemia, unspecified
CPT/HCPCS: 36415; 80053; 84439; 84443; 85025

== ENCOUNTER 2025-01-19 16:56 | Inpatient (IN) | payer OTHER, SELFPAY ==
[2025-01-19] VITALS (11 sets, daily range): BP systolic 107–156; BP diastolic 74–107; BMI 18.8
--- NOTE | 2025-01-19 12:57 | ED.GENMED ---
History of Present Illness
General
Chief Complaint: Weakness
Time Seen by Provider: 01/19/25 12:46
History of Present Illness
History of Present Illness:
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 Patient states for
the past 5 days has been extremely tired and weak. He normally feels this way when he needs a blood transfusion. He called his oncologist who told him to come to the emergency department for evaluation. He also states he had a cough and his son
has been sick at home. He also notes that he has been eating and drinking last though attributes it to his radiation. No chest pain. No shortness of breath. No nausea vomiting. No diarrhea. He has not noticed any melena hematochezia or rectal
bleeding. No fevers
Past History
Past History
ED Past Medical History: Cancer (Nasopharyngeal) and HTN
ED Past Surgical History: Orthopedic
Social History
Tobacco: Former smoker
Alcohol: None
Phy Exam
Physical Exam
Physical Exam:
GENERAL: in no acute distress
HEENT: normocephalic, extraocular movements intact, dry oral mucosa
NECK: normal inspection
RESPIRATORY: no respiratory distress, crackles at the right lower base
CARDIOVASCULAR: regular rate and rhythm
ABDOMEN/: soft, non-distended, non-tender to palpation, no rebound or guarding
EXTREMITIES: non-tender, no edema/swelling
NEUROLOGIC: awake and alert, moves all extremities
SKIN: warm
Course
Orders/Labs/Results
Orders:
Orders
01/19/25 12:56
0.9% Sodium Chloride 1000 ml [Nss] 1,000 ml IV BOLUS
CR Chest - 2 Views Urgent
Comment:
Reason For Exam: cough
01/19/25 12:57
Urinalysis Reflex To Culture Urgent
01/19/25 13:01
Electrocardiogram (*1) Urgent
Reason for Study: Fatigue / Weakness
EKG- Treatment ONCE
COVID-19 Antigen Urgent
Source: Nasal Swab
Influenza A+B Rapid Molecular Urgent
RAUL Source: Nasal Swab
Specimen Description:
01/19/25 13:16
Basic Metabolic Panel Urgent
Complete Blood Count/With Diff Urgent
TSH Reflex To Free T4 Urgent
01/19/25 14:14
Add On- LAB Urgent
Tests Added?: thyroid with reflex
Abnormal Lab Results
01/19/25
13:16
RBC 3.67 L 10^6/uL
(4.70-6.10)
Hgb 10.3 L g/dL
(13.0-18.0)
Hct 31.5 L %
(39.0-52.0)
MCHC 32.7 L g/dL
(33.0-37.0)
RDW 16.2 H %
(11.5-14.5)
Plt Count 126 L 10^3/uL
(130-400)
Abs Immat Gran (auto) 0.2 H 10^3/uL
(0-0.05)
Absolute Lymphs (auto) 0.3 L 10^3/uL
(1.2-3.4)
Immature Gran % 4.0 H %
(0-0.5)
Neutrophils % 78.0 H %
(42.2-75.2)
Lymphocytes % 6.7 L %
(20.5-51.1)
01/19/25 13:16
01/19/25 13:16
Vital Signs
Initial and Last Documented VS:
Initial Vital Signs
Temp Pulse BP Pulse Ox
98 F 85 107/74 96
01/19/25 12:03 01/19/25 12:03 01/19/25 12:03 01/19/25 12:03
Last Documented Vital Signs
Temp Pulse Resp BP Pulse Ox
98 F 66 16 137/95 95
01/19/25 12:03 01/19/25 13:45 01/19/25 14:06 01/19/25 14:09 01/19/25 13:45
MDM/Problems Addressed
Differential Diagnosis Includes:
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 Vitals are unremarkable and exam does show chronically ill-appearing
man with crackles at the lower base and dry oral mucosa. Differential is broad with symptoms of anemia versus pneumonia versus viral illness. Will check blood work urine and give fluids.
*Critical Care Note
Total Time (30-74mins, 75-104mins- exclusive of procedures): Not Applicable
Update Note
Update Note:
On reevaluation patient does feel slightly better after the fluids. Chest x-ray per my interpretation does show the lung mass with pleural effusion. Hemoglobin and platelets are improved from prior. Given the ongoing generalized weakness fatigue
patient will benefit from admission. Discussed with hospitalist who excepted patient to their service with urine thyroid and x-ray official read pending.
ED Attending Note
-
Portions of this chart may have been created with voice recognition software.� Occasional wrong word or��sound alike� substitutions may have occurred due to the inherent limitations of voice recognition software.
Discharge Plan
Departure
Patient Disposition: Admit
Date of Disposition: 01/19/25
Time of Disposition: 14:55
Presentation/result/management discussed w/ accepting MD/DO: Hospitalist
Discharge Problem:
Weakness
Prescriptions:
No Action
prochlorperazine maleate 10 MG tablet
10 mg PO Q6HPRN PRN (Reason: nausea/vomiting)
diazepam 5 MG tablet
5 mg PO DAILYPRN PRN (Reason: anxiety)
Patient Comments:
09/09/23 #30
levothyroxine 75 MCG tablet
75 mcg PO DAILY AT 0700
escitalopram oxalate 10 MG tablet
10 mg PO DAILY
loratadine [Claritin] 10 mg Tablet
10 mg PO DAILY
potassium chloride 10 mEq Tablet Extended Release
10 meq PO DAILY
pantoprazole 20 mg Tablet,Delayed Release (Dr/Ec)
20 mg PO DAILY
oxycodone 5 mg Tablet
5 mg PO DAILYPRN PRN (Reason: severe pain)
Patient Comments:
09/17/23 filled on 08/09/23 #20
Medical Marijuana
1 - 2 puff inhalation HS
Referrals:
Cody Leon DO [Family Provider] -
Interventions
Interventions:
*Risk Screen - Suicide Last Done: 01/19/25 12:03
*General Assessment Last Done: 01/19/25 12:03
*Neglect/Abuse Screening Last Done: 01/19/25 12:03
*ED- Fall Risk Assessment Last Done: 01/19/25 12:52
*ED COVID-19 Vaccine History Last Done: 01/19/25 12:52
ED- Pulmonary Assessment Last Done: 01/19/25 12:52
ED- Neurological Assessment Last Done: 01/19/25 12:52
ED- Cardiac Assessment Last Done: 01/19/25 12:52
Discharge Date and Time
Print Language: AUSTRIAN
[2025-01-19] MEDS: NSS 1000 IV ×2 (13:22→19:44)
[2025-01-19 13:31] LABS: % Basophils 1.2 % (0-2); % Eosinophils 2.6 % (0-6); % Lymphocytes 6.7 % (20.5-51.1); % Monocytes 7.5 % (1.7-9.3); Absolute Basophils 0.1 10^3/uL (0-0.2); Absolute Eosinophils 0.1 10^3/uL (0-0.7); Absolute Immature Granulocytes 0.2 10^3/uL (0-0.05); Absolute Lymphocytes 0.3 10^3/uL (1.2-3.4); Absolute Monocytes 0.4 10^3/uL (0.1-0.6); Absolute Neutrophils 3.9 10^3/uL (1.4-6.5); Hematocrit 31.5 % (39.0-52.0); Hemoglobin 10.3 g/dL (13.0-18.0); Mean Corp Hgb Conc. 32.7 g/dL (33.0-37.0); Mean Corpuscular Hgb 28.1 pg (27.0-31.0); Mean Corpuscular Volume 85.8 fL (80.0-94.0); Mean Platelet Volume 9.7 fL (7.4-10.4); Nucleated Red Blood Cells % 0 % (-); Platelet Count 126 10^3/uL (130-400); Red Blood Cell Count 3.67 10^6/uL (4.70-6.10); Red Cell Dist. Width 16.2 % (11.5-14.5)
[2025-01-19 13:48] LABS: COVID-19 Antigen Negative (Negative)
[2025-01-19 13:54] LABS: Blood Urea Nitrogen 20 mg/dl (9-20); Calcium 8.6 mg/dl (8.4-10.2); Carbon Dioxide 26 mmol/L (22-30); Chloride 100 mmol/L (98-107); Estimated Creatinine Clearance 52 ml/min; Glucose 99 mg/dl (70-99); Sodium 136 mmol/L (135-145); eGFR > 60.00
--- NOTE | 2025-01-19 16:07 | W.PN.UPDATE ---
Update Note
Progress Note Update
This is an addendum to H&P written by ELDER Flaherty
I saw and examined the patient.
The PRINCIPAL CLERK's note was reviewed and I agree with the note.
Comment:
Mr. 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 Patient states he feels much weaker for prolonged period of time post chemo
than is normal. No fevers. He has a new cough.
Triage VS: T 98, P 85, BP 107/74, SpO2 96%
LABS: WBC 5, Hg 10.3, PLT 126, Na 136, K+ 4.0, CO2 26, Cr 1.1, Glucose 99
CXR
IMPRESSION:
1. SEVERE PLEURAL METASTATIC DISEASE throughout the RIGHT HEMITHORAX including a large 7.5 cm malignant mass in the right upper lobe.
2. Multiple pleural and pulmonary metastases in the left lower lung.
3. Small malignant right pleural effusion.
4. Right IJ chemotherapy Mediport in place.
MAR: 1L IVF
Weakness
Hx Metastatic Nasopharyngeal Carcinoma on Chemotherapy
New Cough
-CXR hard to interpret with metastatic disease but with new wet cough and significant weakness will treat for pneumonia
-IV Ceftriaxone/Doxy
-Oncology consult
-1 L IVF overnight
-PT
DVT PPx
DNR - discussed on admission
[2025-01-19 16:13] LABS: TSH Reflex To Free T4 4.04 uIU/ml (0.47-4.68)
--- NOTE | 2025-01-19 16:18 | HPS.HSE ---
Family Physician
-
Family Physician: Cody Leon
Chief Complaint
-
Weakness
History of Present Illness
Patient is a 64 y/o male past medical history of Metastatic Nasopharyngeal Cancer and Hypothyroidism who presents with weakness. Patient reports last chemotherapy was on January 13. He reports generalized weakness, poor appetite and weight loss.
He reports it is difficult to eat following extensive radiation at time of his initially diagnosis. He reports slightly worsening cough compared to baseline. He denies fevers, sweats or chills.
Medical History
Past Medical History
Past Medical History: Reports Other
Additional Past Medical History:
Metastatic (Stage IV B) Nasopharyngeal Carcinoma
Chronic Anemia
Thrombocytopenia
Essential Hypertension
Hypothyroidism
Anxiety / Depression
Past Surgical History: Reports Other
Additional Past Surgical History:
Left Ankle Surgery
Social History
Tobacco: Former Smoker
Alcohol: None
Personal:
Living: With Family
Family History
Family History: Not pertinent
Allergies / Home Medications
Allergies reflects when Allergies were last updated in [email or web address].
Home Medications with original date entered in [email or web address]
Allergy/Medication List:
Allergies
Allergy/AdvReac Type Severity Reaction Status Date / Time
No Known Allergies Allergy Verified 01/19/25 12:07
Home Medications
prochlorperazine maleate 10 mg tablet 10 mg PO Q6HPRN PRN nausea/vomiting 06/28/21
escitalopram oxalate 10 mg tablet 10 mg PO DAILY Depression 04/05/22
loratadine 10 mg tablet (Claritin) 10 mg PO DAILY Allergies 08/22/23
Medical Marijuana 1 - 2 puff inhalation DAILYPRN PRN anxitey/stress 09/17/23
oxycodone 5 mg tablet 5 mg PO DAILYPRN PRN severe pain 09/17/23
diazepam 10 mg tablet (Valium) 5 mg PO HS 01/19/25
folic acid 1 mg tablet 1 mg PO DAILY 01/19/25
levothyroxine 50 mcg tablet (Synthroid) 50 mcg PO DAILY 01/19/25
ondansetron HCl 8 mg tablet 8 mg PO [id number] PRN nausea 01/19/25
potassium chloride 20 mEq tablet,extended release 20 meq PO DAILY 01/19/25
Review of Systems
-
A 12 point ROS was completed and negative except as noted: Yes
Constitutional: Reports Weight Loss; Denies Fever
Respiratory: Reports Cough; Denies Trouble Breathing
Cardiac: Denies Chest Pain or Palpitations
Abdomen/GI: Denies Abdominal Pain, Nausea, Vomiting or Diarrhea
Physical Exam
Vital Signs
Vital Signs
Temp Pulse Resp BP Pulse Ox
98.6 F 78 19 154/86 95
01/19/25 15:11 01/19/25 15:11 01/19/25 15:11 01/19/25 15:11 01/19/25 15:11
Physical Exam
General: Comfortable and Conversant
HEENT: Anicteric and Moist mucous membranes
Respiratory: Clear and Non Labored Respirations
Cardiac: S1/S2 and Regular Rhythm
GI: Soft and Non Tender
Rectal: Deferred by Provider
Musculoskeletal: No Clubbing, No Cyanosis and No Edema
Skin: Warm and Dry
Neuro: Awake, Alert and Oriented
Psych: Calm
Laboratory Results
-
01/19/25 13:16
01/19/25 13:16
Data Reviewed
-
Lab Data: Labs Reviewed by me
Old Records: Reviewed
Impression/Plan
-
Worsening Cough, possible underlying pneumonia in setting of worsening cough
-Start empiric ceftriaxone and doxycycline
-Check Sputum Culture
Weakness
-Consult PT/OT
Metastatic (Stage IV B) Nasopharyngeal Carcinoma
-Last Chemotherapy January 13
-Consult Oncology
Chronic Anemia
-Hgb stable
Thrombocytopenia
-Platelet count improving
Hypothyroidism
-Continue levothyroxine
Anxiety / Depression
-Continue escitalopram
DVT proph: SC Heparin
Code Status: DNR
--- NOTE | 2025-01-19 18:23 | PTCARENOTE ---
assumed care of pt. AOx3, c/o anxiety states he normally takes Valium. Lungs diminished on RA. pt denies pain. abd soft NT. CB in reach. processing transfer
[2025-01-19] MEDS: ROCEPHIN 1000 MG IV (19:51)
[2025-01-19] MEDS: STERILE WATER FOR INJECTION 10 ML IV (19:52)
[2025-01-19] MEDS: VIBRAMYCIN 100 MG PO (19:53)
[2025-01-19] MEDS: HEPARIN 5000 UNITS SC (19:54)
[2025-01-19] MEDS: VALIUM 5 MG PO (20:19)
[2025-01-20 01:00] VITALS: BP 139/86
[2025-01-20 04:53] LABS: Urine Albumin 1+ (Neg - Trace); Urine Bilirubin Negative (Negative); Urine Character Clear (Clear); Urine Color Yellow; Urine Glucose Negative (Negative); Urine Ketone 2+ (Negative); Urine Leukocyte Negative (Negative); Urine Nitrite Negative (Negative); Urine Occult Blood 2+ (Negative); Urine Urobilinogen Negative (Neg - 1+); Urine pH 6.5 (5.0-9.0)
[2025-01-20 05:01] LABS: Hematocrit 30.5 % (39.0-52.0); Mean Corp Hgb Conc. 32.8 g/dL (33.0-37.0); Mean Corpuscular Hgb 28.1 pg (27.0-31.0); Mean Corpuscular Volume 85.7 fL (80.0-94.0); Mean Platelet Volume 9.7 fL (7.4-10.4); Platelet Count 102 10^3/uL (130-400); Red Blood Cell Count 3.56 10^6/uL (4.70-6.10); Red Cell Dist. Width 15.8 % (11.5-14.5)
[2025-01-20 05:13] LABS: Urine Bacteria Few (Negative)
[2025-01-20 05:40] LABS: Blood Urea Nitrogen 19 mg/dl (9-20); Calcium 8.3 mg/dl (8.4-10.2); Carbon Dioxide 23 mmol/L (22-30); Chloride 102 mmol/L (98-107); Estimated Creatinine Clearance 64 ml/min; Glucose 96 mg/dl (70-99); Magnesium 1.2 mg/dl (1.6-2.3); Potassium 3.8 mmol/L (3.5-5.1); Sodium 135 mmol/L (135-145); eGFR > 60.00
[2025-01-20 08:00] VITALS: BP 143/72
[2025-01-20] MEDS: SYNTHROID 50 MCG PO (08:27)
[2025-01-20] MEDS: FOLVITE 1 MG PO (08:28)
[2025-01-20] MEDS: VIBRAMYCIN 100 MG PO ×2 (08:28→21:14)
[2025-01-20] MEDS: HEPARIN 5000 UNITS SC (08:28)
[2025-01-20] MEDS: LEXAPRO 10 MG PO (08:28)
[2025-01-20] MEDS: KCL 20 MEQ PO (08:28)
--- NOTE | 2025-01-20 10:02 | W.PN.HOSP.TC ---
Today's Communication/Plan
-
see bold
Assessment / Plan
Assessment / Plan
HPI: 64 y/o male past medical history of Metastatic Nasopharyngeal Cancer and Hypothyroidism who presents with weakness. Patient reports last chemotherapy was on January 13. He reports generalized weakness, poor appetite and weight loss. He
reports it is difficult to eat following extensive radiation at time of his initially diagnosis. He reports slightly worsening cough compared to baseline. He denies fevers, sweats or chills.
#Worsening Cough, possible underlying pneumonia in setting of worsening cough
Chest x-ray shows severe pleural metastatic disease, small malignant right pleural effusion
He is afebrile, there is no leukocytosis
Continue empiric Rocephin and doxycycline for now, follow-up on sputum cultures
Appreciate SPL input, recommend n.p.o. and VSE
Weakness
-Oncology recommends outpatient cancer rehab
-PT
Metastatic (Stage IV B) Nasopharyngeal Carcinoma
-Last Chemotherapy January 13
-Seen by oncology, recommend outpatient follow-up
Hypomagnesemia
-Replete by IV, recheck a.m. labs
Chronic Anemia
-Hgb stable
Thrombocytopenia
-Platelet count improving
Hypothyroidism
-Continue levothyroxine
Anxiety / Depression
-Continue escitalopram
DVT proph: SC Lovenox
Code Status: DNR
Total time spent to see the patient on the floor, examine the patient, review data and lab results, discuss treatment plan with patient, nursing staff around 51 minutes.
Physical Exam
General: Appears chronically ill, no acute distress
HEENT: Normocephalic, Atraumatic, EOMI, MMM
Respiratory: Clear to Auscultation bilaterally
Cardiac: Normal S1/S2, Regular Rate and Rhythm
GI: Soft, Nontender, Nondistended, Normal Bowel Sounds
Extremities: No Clubbing, Cyanosis, or Edema
Neuro: Nonfocal/Grossly Intact
Anticipated Discharge: 24 - 48 hours
Subjective/Interval History
-
Date of Service: January 20, 2025
Patient complains of insomnia. He has a chronic cough. Also feels food is getting stuck in his throat. He vomited while doing the swallowing evaluation with a speech pathologist. Denies shortness of breath. No fever.
Objective Data
-
Labs:
Laboratory Results
01/20/25
04:42
WBC 5.0
Hgb 10.0 L
Hct 30.5 L
Plt Count 102 L
Sodium 135
Potassium 3.8
Chloride 102
Carbon Dioxide 23
BUN 19
Creatinine 0.9
Glucose 96
Calcium 8.3 L
Vital Signs:
Vital Signs
Temp Pulse Resp BP Pulse Ox
97.6 F 83 20 156/92 94
01/20/25 07:40 01/19/25 20:51 01/19/25 20:51 01/19/25 23:03 01/19/25 23:05
I&O
01/19/25 01/20/25 01/21/25
06:59 06:59 06:59
Intake Total 200 / 200
Balance 200 / 200
[2025-01-20] MEDS: MAGNESIUM SULFATE 50 IV (10:36)
[2025-01-20 11:52] VITALS: BMI 18.8
[2025-01-20] MEDS: NSS 1000 IV (12:37)
--- NOTE | 2025-01-20 13:51 | PTOTSP ---
Dysphagia Evaluation
Patient with chronic risk factors for dysphagia (i.e., nasopharyngeal cancer with mets to the lungs; history of radiation to head/neck and chest) and admitted with concern for pneumonia. Patient failed 3 oz swallow (coughing) and w/ vomiting s/p
liquids today.
Recommend:
1. NPO
2. Medications via non-oral means
3. Hold aspiration risk hydration protocol given vomiting w/ sparing PO
4. Oral care 3x daily
5. Video swallow study if/when medically cleared to objectively assess swallow function
--- NOTE | 2025-01-20 14:00 | CON.ONC ---
Impression
Impression
weakness, deconditioning from cancer treatment
hypomagnesemia
metastatic head/neck cancer
Plan
Plan
IV mag repletion
Monitor CBC, CMP, Mag
PT consult
He'd benefit from outpatient 'cancer rehab' to manage deconditioning, swallowing dysfunction, etc.
Will reschedule onc f/u at the time of discharge
Patient History
History of Present Illness
This is a 64 yo M w/ h/o head/neck cancer, mets to right lung and hemithorax, on chemo with carboplatin and erbitux, last on 01/13/25, who presented to the ER with weakness. He's had poor appetite and difficulty swallowing due to his cancer
treatments. Labs noted for magnesium of 1.2. He's getting IV mag currently. No focal complaints. Hgb is 10.0.
Past-Medical/Surgical History
Past Medical History
Past Medical History: Reports Other
Additional Past Medical History:
Metastatic (Stage IV B) Nasopharyngeal Carcinoma
Chronic Anemia
Thrombocytopenia
Essential Hypertension
Hypothyroidism
Anxiety / Depression
Past Surgical History: Reports Other
Additional Past Surgical History:
Left Ankle Surgery
Social History
Tobacco: Former Smoker
Alcohol: None
Personal:
Living: With Family
Family History
Family History: Not pertinent
Patient Medication
�Medication �Instructions �Recorded �Confirmed �Last Taken �Type
prochlorperazine maleate 10 mg 10 mg PO Q6HPRN PRN nausea/vomiting 06/28/21 01/19/25 06/18/23 History
tablet
escitalopram oxalate 10 mg tablet 10 mg PO DAILY Depression 04/05/22 01/19/25 01/18/25 History
loratadine 10 mg tablet (Claritin) 10 mg PO DAILY Allergies 08/22/23 01/19/25 01/18/25 History
Medical Marijuana 1 - 2 puff inhalation DAILYPRN PRN 09/17/23 01/19/25 01/07/25 History
anxitey/stress
oxycodone 5 mg tablet 5 mg PO DAILYPRN PRN severe pain 09/17/23 01/19/25 01/05/25 History
diazepam 10 mg tablet (Valium) 5 mg PO HS 01/19/25 01/19/25 01/18/25 History
folic acid 1 mg tablet 1 mg PO DAILY 01/19/25 01/19/25 Unknown History
levothyroxine 50 mcg tablet 50 mcg PO DAILY 01/19/25 01/19/25 01/18/25 History
(Synthroid)
ondansetron HCl 8 mg tablet 8 mg PO [id number] PRN nausea 01/19/25 01/19/25 Unknown History
potassium chloride 20 mEq 20 meq PO DAILY 01/19/25 01/19/25 01/18/25 History
tablet,extended release
Active Medications
Generic Name Dose Route Start Last Admin
Trade Name Freq PRN Reason Stop Dose Admin
Acetaminophen 650 mg 01/19/25 18:22
Acetaminophen 325 Mg Tablet PO 02/16/25 18:21
Q4HPRN PRN
mild pain/ fever>100.5F
Ceftriaxone Sodium 1,000 mg 01/20/25 18:00
Ceftriaxone 1000 Mg / 10 Ml Vial IV
Q24H DEMETRIO
Diazepam 5 mg 01/19/25 22:00 01/19/25 20:19
Diazepam 5 Mg Tablet PO 02/16/25 21:59 5 mg
HS DEMETRIO Administration
Doxycycline Hyclate 100 mg 01/20/25 08:00 01/20/25 08:28
Doxycycline 100 Mg Capsule PO 100 mg
Q12 DEMETRIO Administration
Enoxaparin Sodium 40 mg 01/20/25 18:00
Enoxaparin Sodium 40 Mg/0.4 Ml Syringe SC 02/17/25 17:59
QPM DEMETRIO
Escitalopram Oxalate 10 mg 01/20/25 08:00 01/20/25 08:28
Escitalopram 10 Mg Tablet PO 02/17/25 07:59 10 mg
DAILY DEMETRIO Administration
Folic Acid 1 mg 01/20/25 08:00 01/20/25 08:28
Folic Acid 1 Mg Tablet PO 02/17/25 07:59 1 mg
DAILY DEMETRIO Administration
Heparin Sodium (Porcine) 500 unit 01/20/25 10:05
Heparin Flush Pf (100 Unit/Ml) 5 Ml Syringe IV 02/17/25 10:04
PRN PRN
port access
Sodium Chloride 1,000 mls @ 60 mls/hr 01/20/25 12:30 01/20/25 12:37
Nss IV 1,000 mls
[id number] DEMETRIO Administration
Levothyroxine Sodium 50 mcg 01/20/25 06:00 01/20/25 08:27
Levothyroxine 50 Mcg Tablet PO 02/17/25 05:59 50 mcg
DAILY @ 0600 DEMETRIO Administration
Oxycodone HCl 5 mg 01/19/25 18:22
Oxycodone 5 Mg Regular Release Tablet PO 02/02/25 18:21
DAILYPRN PRN
severe pain
Potassium Chloride 20 meq 01/20/25 08:00 01/20/25 08:28
Potassium Chloride 20 Meq Extended Release Tablet PO 02/17/25 07:59 20 meq
DAILY DEMETRIO Administration
Sodium Chloride 0 flush 01/19/25 18:00
Sodium Chloride 0.9% (Flush) Syringe IV 02/16/25 17:59
PER PROTOCOL DEMETRIO
Sterile Water 10 ml 01/20/25 18:00
Sterile Water For Injection 10 Ml Vial IV 02/17/25 17:59
Q24H DEMETRIO
Physical Exam
-
General: No Apparent Distress, Conversant and Appears Chronically Ill
HEENT: Moist Mucous Membranes; Negative Jaundice
Cardiology: Normal Sinus Rhythm
GI: Soft and Normal Bowel Sounds
Musculoskeletal: No Clubbing, No Cyanosis and No Edema
Neurology: Non Focal
Skin: Warm
Psych: Calm and Intact Judgement/Insight
Labs
Lab Results
WBC 5.0 10^3/uL (4.8-10.8) 01/20/25 04:42
RBC 3.56 10^6/uL (4.70-6.10) L 01/20/25 04:42
Hgb 10.0 g/dL (13.0-18.0) L 01/20/25 04:42
Hct 30.5 % (39.0-52.0) L 01/20/25 04:42
MCV 85.7 fL (80.0-94.0) 01/20/25 04:42
MCH 28.1 pg (27.0-31.0) 01/20/25 04:42
MCHC 32.8 g/dL (33.0-37.0) L 01/20/25 04:42
RDW 15.8 % (11.5-14.5) H 01/20/25 04:42
Plt Count 102 10^3/uL (130-400) L 01/20/25 04:42
MPV 9.7 fL (7.4-10.4) 01/20/25 04:42
Abs Immat Gran (auto) 0.2 10^3/uL (0-0.05) H 01/19/25 13:16
Absolute Neuts (auto) 3.9 10^3/uL (1.4-6.5) 01/19/25 13:16
Absolute Lymphs (auto) 0.3 10^3/uL (1.2-3.4) L 01/19/25 13:16
Absolute Monos (auto) 0.4 10^3/uL (0.1-0.6) 01/19/25 13:16
Absolute Eos (auto) 0.1 10^3/uL (0-0.7) 01/19/25 13:16
Absolute Basos (auto) 0.1 10^3/uL (0-0.2) 01/19/25 13:16
Immature Gran % 4.0 % (0-0.5) H 01/19/25 13:16
Neutrophils % 78.0 % (42.2-75.2) H 01/19/25 13:16
Lymphocytes % 6.7 % (20.5-51.1) L 01/19/25 13:16
Monocytes % 7.5 % (1.7-9.3) 01/19/25 13:16
Eosinophils % 2.6 % (0-6) 01/19/25 13:16
Basophils % 1.2 % (0-2) 01/19/25 13:16
Creatinine 0.9 mg/dL (0.7-1.3) 01/20/25 04:42
Vital Signs
Vital Signs
Temp Pulse Resp BP Pulse Ox
97.6 F 73 17 143/72 96
01/20/25 07:40 01/20/25 08:00 01/20/25 08:00 01/20/25 08:00 01/20/25 08:00
[2025-01-20 15:08] VITALS: BP 139/86
--- NOTE | 2025-01-20 15:33 | PN.CDI ---
CDI
- -
CDI:
Physician Documentation Request
Admit Date: 01/19/25 16:56
Dear Doctor Do,
Please review the following and provide your response in the progress notes.
Clinical Indicators:
Rn Postpartum, 01/20
#Patient meets AND and ASPEN criteria for moderate protein calorie malnutrition
#...due to less than 75% of estimated nutrition needs met for over 1 month
#...and for moderate temporal muscle loss.
Based on the above and your clinical assessment, please provide specificity regarding the patient nutritional status:
Moderate Protein Calorie Malnutrition
Other (please specify)
[place] Criteria ([facility]ist 2017)
2 or more criteria must be present for either
non severe or severe malnutrition
Note that the criteria differs related to the
presence of an acute or chronic illness
Acute Illness Chronic Illness
Energy Intake Non Severe: <75% for >7 days Non Severe: <75% for >1 month
Severe: <50% for >5 days Severe: <75% for >1 month
Weight Loss Non Severe: 1-2% over 1 week Non Severe: 5% over 1 month
5% over 1 month 7.5% over 3 months
7.5% over 3 months 10% over 6 months
1 year N/A 20% over 1 year
Severe: >2% over 1 week Severe: >5% over 1 month
>5% over 1 month >7.5% over 3 months
>7.5% over 3 months >10% over 6 months
1 year N/A >20% over 1 year
Body Fat Non Severe: Mild Decrease Non Severe: Mild Loss
Severe: Moderate Decrease Severe: Severe Loss
Muscle Mass Non Severe: Mild Decrease Non Severe: Mild Loss
Severe: Moderate Decrease Severe: Severe Loss
Use of terms such as suspected, likely, concern for, or probable (associated with a specific diagnosis that is being evaluated, monitored, or treated as if it exists) are acceptable and can be coded in the inpatient setting, when documented at the
time of discharge.
Thank you,
Wilda Dumont RN BSN CCDS
CDI Specialist
please contact via tiger text
Please use your independent medical judgment in providing your response.
[2025-01-20 15:58] VITALS: BP 139/86
[2025-01-20] MEDS: LOVENOX 40 MG SC (17:04)
[2025-01-20] MEDS: STERILE WATER FOR INJECTION 10 ML IV (17:05)
[2025-01-20] MEDS: ROCEPHIN 1000 MG IV (17:05)
[2025-01-20 18:09] VITALS: BP 124/70
[2025-01-20] MEDS: VALIUM 5 MG PO (21:14)
[2025-01-20 23:00] VITALS: BP 119/70
[2025-01-21 06:00] VITALS: BMI 18.2
[2025-01-21] MEDS: SYNTHROID 50 MCG PO (06:38)
[2025-01-21] MEDS: NSS 1000 IV (06:38)
--- NOTE | 2025-01-21 07:27 | W.PN.ONC2 ---
Today's Communication / Plan
-
Replete magnesium. Physical therapy. Outpatient follow-up.
Impression
Impression
weakness, deconditioning from cancer treatment
hypomagnesemia
metastatic head/neck cancer
Plan
Plan
IV mag repletion. Baseline Mg = 1.2. Follow-up Mg pending
PT consult. He'd benefit from outpatient 'cancer rehab' to manage deconditioning, swallowing dysfunction, etc.
Will reschedule onc f/u at the time of discharge
Subjective/Objective
Chief Complaint
ACS Heme Onc
Subjective
Feels a little better. Denies diarrhea. Just has generalized weakness.
Vital Signs:
Vital Signs
Temp Pulse Resp BP Pulse Ox
98.5 F 74 16 119/70 96
01/20/25 23:00 01/20/25 23:00 01/20/25 23:00 01/20/25 23:00 01/20/25 23:00
Lab Results:
Laboratory Data
WBC 5.0 10^3/uL (4.8-10.8) 01/20/25 04:42
Hgb 10.0 g/dL (13.0-18.0) L 01/20/25 04:42
Plt Count 102 10^3/uL (130-400) L 01/20/25 04:42
eGFR > 60.00 01/20/25 04:42
Physical Exam
HEENT: No Jaundice
Cardiology: S1 and S2
Pulmonary: Clear
GI: Soft
Extremities: No C/C/E
[2025-01-21 08:10] VITALS: BMI 18.2
[2025-01-21 08:12] VITALS: BP 140/86
--- NOTE | 2025-01-21 09:06 | W.PN.HOSP.TC ---
Today's Communication/Plan
-
see bold
Assessment / Plan
Assessment / Plan
HPI: 64 y/o male past medical history of Metastatic Nasopharyngeal Cancer and Hypothyroidism who presents with weakness. Patient reports last chemotherapy was on January 13. He reports generalized weakness, poor appetite and weight loss. He
reports it is difficult to eat following extensive radiation at time of his initially diagnosis. He reports slightly worsening cough compared to baseline. He denies fevers, sweats or chills.
#Worsening Cough, possible underlying pneumonia in setting of worsening cough
Chest x-ray shows severe pleural metastatic disease, small malignant right pleural effusion
COVID/influenza negative
He is afebrile, there is no leukocytosis, but there is a left shift, procalcitonin elevated at 0.68
Continue empiric Rocephin and doxycycline D 12/31
Appreciate SPL input, VSE shows aspiration of many consistencies
Patient would like to try minced/moist food with thin liquids
Continue dysphagia therapy
Weakness
-Oncology recommends outpatient cancer rehab
-PT rec outpt PT
Metastatic (Stage IV B) Nasopharyngeal Carcinoma
-Last Chemotherapy January 13
-Seen by oncology, recommend outpatient follow-up
Hypomagnesemia
-Replete by IV, recheck a.m. labs
Moderate protein calorie malnutrition
-Encourage oral intake, start protein supplement as tolerated
Chronic Anemia
-Hgb stable
Thrombocytopenia
-Platelet count improving
Hypothyroidism
-Continue levothyroxine
Anxiety / Depression
-Continue escitalopram
DVT proph: SC Lovenox
Code Status: DNR
Updated son on phone 01/21
Total time spent to see the patient on the floor, examine the patient, review data and lab results, discuss treatment plan with patient, nursing staff around 50 minutes.
Physical Exam
General: Appears chronically ill, no acute distress
HEENT: Normocephalic, Atraumatic, EOMI, MMM
Respiratory: Clear to Auscultation bilaterally
Cardiac: Normal S1/S2, Regular Rate and Rhythm
GI: Soft, Nontender, Nondistended, Normal Bowel Sounds
Extremities: No Clubbing, Cyanosis, or Edema
Neuro: Nonfocal/Grossly Intact
Anticipated Discharge: > 48 hours
Subjective/Interval History
-
Date of Service: January 20, 2025
Objective Data
-
Labs:
Laboratory Results
01/20/25
04:42
WBC 5.0
Hgb 10.0 L
Hct 30.5 L
Plt Count 102 L
Sodium 135
Potassium 3.8
Chloride 102
Carbon Dioxide 23
BUN 19
Creatinine 0.9
Glucose 96
Calcium 8.3 L
Vital Signs:
Vital Signs
Temp Pulse Resp BP Pulse Ox
97.6 F 73 17 143/72 96
01/20/25 07:40 01/20/25 08:00 01/20/25 08:00 01/20/25 08:00 01/20/25 08:00
I&O
01/19/25 01/20/25 01/21/25
06:59 06:59 06:59
Intake Total 250 / 250
Balance 250 / 250
[2025-01-21] MEDS: VIBRAMYCIN 100 MG PO ×2 (10:09→21:09)
[2025-01-21] MEDS: LEXAPRO 10 MG PO (10:09)
[2025-01-21] MEDS: KCL 20 MEQ PO ×2 (10:09→15:34)
[2025-01-21] MEDS: FOLVITE 1 MG PO (10:09)
--- NOTE | 2025-01-21 10:14 | PTOTSP ---
Videofluoroscopic swallow study
WFL-mild oral, moderate-severe pharyngeal dysphagia secondary to head/neck cancer and effects of XRT.
+Aspiration of thin liquids via cup with an effective cough response
+Aspiration of mildly thick liquid wash via cup following puree without a sensory response and an effective cued cough
+Aspiration of trace solids without a sensory response and an effective cued cough
At most moderate retention in valleculae/solids reduced with head turns left/right. Liquid wash w/ thickened liquids ineffective.
Patient denied prior PNAs and is able to follow strategies/complete oral care. Patient opted for diet below after education re: options, risks, possible complications. Discussed with nurse and physician.
1. IDDSI Level 5 Minced and Moist, Thin liquids via cup with chin tuck
2. Strategies: upright to 90 degrees, single cup sips with chin tucked, multiple swallows with head turns left/right with solids (to help clear residue), intermittent cough/swallow (to clear airway)
3. Oral care 3-5x daily
4. Medications crushed in puree
5. Dysphagia tx for education at the acute care level
6. Consider outpatient dysphagia evaluation/tx for pharyngeal exercises
[2025-01-21 10:31] LABS: Hematocrit 30.4 % (39.0-52.0); Hemoglobin 10.1 g/dL (13.0-18.0); Mean Corp Hgb Conc. 33.2 g/dL (33.0-37.0); Mean Corpuscular Hgb 28.6 pg (27.0-31.0); Mean Corpuscular Volume 86.1 fL (80.0-94.0); Red Blood Cell Count 3.53 10^6/uL (4.70-6.10); White Blood Cell Count 7.4 10^3/uL (4.8-10.8)
[2025-01-21 11:07] LABS: Procalcitonin 0.68 ng/ml (0.0-0.25)
[2025-01-21 11:14] LABS: Blood Urea Nitrogen 19 mg/dl (9-20); Calcium 8.5 mg/dl (8.4-10.2); Carbon Dioxide 23 mmol/L (22-30); Chloride 104 mmol/L (98-107); Estimated Creatinine Clearance 57 ml/min; Glucose 114 mg/dl (70-99); Magnesium 1.4 mg/dl (1.6-2.3); Potassium 3.4 mmol/L (3.5-5.1); Sodium 138 mmol/L (135-145); eGFR > 60.00
[2025-01-21 12:30] LABS: Mean Platelet Volume 9.7 fL (7.4-10.4); Platelet Count 79 10^3/uL (130-400)
[2025-01-21 13:06] VITALS: BP 138/88; BP 152/90; PULSE 76; O2SAT 93
[2025-01-21 14:45] VITALS: BP 142/79
[2025-01-21] MEDS: MAGNESIUM SULFATE 50 IV (15:35)
--- NOTE | 2025-01-21 16:38 | CM ---
Met with patient and his son at bedside to obtain information for assessment. Patient stated that he lives in an in law suite attached to his sons home. There is one step to enter. He stated that he is mostly independent with his personal care,
ADLs, dressing and bathing and his son cooks meals and helps with carpenter repairer. Patient denied any DME except for a cane. He has not been to a SNF.
Patient was on o2 initially but has weaned. He does not have any at home.
Patient has a prescription plan and uses, [facility] in [place] for all of her medications.
Patient's PCP is, Cody Leon.
Patient stated that he feels he will be able to return home when stable. Patient's son talked to CM and stated that patient has not been very ambulatory or independent. His son with whom he lives, is often out of the the area on business trips. If
patient qualifies, patient's sonJin feels that SNF would be a good plan so he can get stronger.
Plan: Case management will continue to follow and assist with discharge planning. Potential SNF. Will await recommendations.
[2025-01-21] MEDS: STERILE WATER FOR INJECTION 10 ML IV (17:17)
[2025-01-21] MEDS: ROCEPHIN 1000 MG IV (17:17)
[2025-01-21] MEDS: LOVENOX 40 MG SC (17:18)
[2025-01-21] MEDS: MELATONIN 10 MG PO (21:09)
[2025-01-21] MEDS: VALIUM PO (22:53)
[2025-01-21 23:00] VITALS: BP 131/84
[2025-01-22] MEDS: SYNTHROID 50 MCG PO (05:18)
[2025-01-22 05:50] LABS: Magnesium 1.6 mg/dl (1.6-2.3)
[2025-01-22 06:00] VITALS: BMI 18.6
[2025-01-22 07:31] VITALS: BP 118/73
[2025-01-22] MEDS: FOLVITE 1 MG PO (08:13)
[2025-01-22] MEDS: LEXAPRO 10 MG PO (08:13)
[2025-01-22] MEDS: KCL 20 MEQ PO (08:13)
[2025-01-22] MEDS: VIBRAMYCIN 100 MG PO ×2 (08:13→21:59)
--- NOTE | 2025-01-22 08:39 | W.PN.HOSP.TC ---
Today's Communication/Plan
-
see bold
Assessment / Plan
Assessment / Plan
HPI: 64 y/o male past medical history of Metastatic Nasopharyngeal Cancer and Hypothyroidism who presents with weakness. Patient reports last chemotherapy was on January 13. He reports generalized weakness, poor appetite and weight loss. He
reports it is difficult to eat following extensive radiation at time of his initially diagnosis. He reports slightly worsening cough compared to baseline. He denies fevers, sweats or chills.
#Worsening Cough, possible underlying pneumonia in setting of worsening cough
Chest x-ray shows severe pleural metastatic disease, small malignant right pleural effusion
COVID/influenza negative
He is afebrile, there is no leukocytosis, but there is a left shift, procalcitonin elevated at 0.68
Continue empiric Rocephin and doxycycline D 01/31
Appreciate SPL input, VSE shows aspiration of many consistencies
Patient would like to try minced/moist food with thin liquids
Continue dysphagia therapy
Weakness
-Oncology recommends outpatient cancer rehab
-PT rec outpt PT
Metastatic (Stage IV B) Nasopharyngeal Carcinoma
-Last Chemotherapy January 13
-Seen by oncology, recommend outpatient follow-up
Hypomagnesemia
-Replete as needed
Hypokalemia
-Replete as needed
Moderate protein calorie malnutrition
-Encourage oral intake, patient states he does not tolerate protein supplements because of the dairy
-Start Remeron 7.5 mg at bedtime to improve appetite
Chronic Anemia
-Hgb stable
Thrombocytopenia
-Platelet count improving
Hypothyroidism
-Continue levothyroxine
Anxiety / Depression
-Continue escitalopram
DVT proph: SC Lovenox
Code Status: DNR
Updated son on phone 01/21
Total time spent to see the patient on the floor, examine the patient, review data and lab results, discuss treatment plan with patient, nursing staff around 40 minutes.
Physical Exam
General: Appears chronically ill, no acute distress
HEENT: Normocephalic, Atraumatic, EOMI, MMM
Respiratory: Clear to Auscultation bilaterally
Cardiac: Normal S1/S2, Regular Rate and Rhythm
GI: Soft, Nontender, Nondistended, Normal Bowel Sounds
Extremities: No Clubbing, Cyanosis, or Edema
Neuro: Nonfocal/Grossly Intact
Anticipated Discharge: 24 - 48 hours
Subjective/Interval History
-
Date of Service: January 21, 2025
Patient reports feeling nauseous. No vomiting. He is eating 10% of his meals. Reports some abdominal pain, and pain around his port site. No fever, no shortness of breath.
Objective Data
-
Labs:
Laboratory Results
01/21/25
10:12
WBC 7.4
Hgb 10.1 L
Hct 30.4 L
Plt Count 79 L D
Sodium 138
Potassium 3.4 L
Chloride 104
Carbon Dioxide 23
BUN 19
Creatinine 1.0
Glucose 114 H
Calcium 8.5
Vital Signs:
Vital Signs
Temp Pulse Resp BP Pulse Ox
97.1 F 71 17 142/79 96
01/21/25 14:45 01/21/25 14:45 01/21/25 14:45 01/21/25 14:45 01/21/25 14:45
I&O
01/20/25 01/21/25 01/22/25
06:59 06:59 06:59
Intake Total 980 / 980
Balance 980 / 980
--- NOTE | 2025-01-22 09:15 | W.PN.ONC2 ---
Today's Communication / Plan
-
.
Impression
Impression
weakness, deconditioning from cancer treatment
aspiration
malnutrition
hypomagnesemia
metastatic head/neck cancer
Plan
Plan
replete magnesium
PT/OT/Swallow/nutrition
OP follow up for continued antineoplastic therapy with Dr. Humphrey upon discharge home
Subjective/Objective
Subjective
Vital Signs:
Vital Signs
Temp Pulse Resp BP Pulse Ox
98.4 F 73 17 118/73 94
01/22/25 07:31 01/22/25 07:31 01/22/25 07:31 01/22/25 07:31 01/22/25 07:31
Lab Results:
Laboratory Data
WBC 7.4 10^3/uL (4.8-10.8) 01/21/25 10:12
Hgb 10.1 g/dL (13.0-18.0) L 01/21/25 10:12
Plt Count 79 10^3/uL (130-400) L D 01/21/25 10:12
eGFR > 60.00 01/21/25 10:12
[2025-01-22] MEDS: MAGNESIUM SULFATE 100 IV (09:23)
[2025-01-22] MEDS: ZOFRAN 4 MG IV (10:54)
[2025-01-22] MEDS: TYLENOL 1000 MG PO (10:54)
[2025-01-22 15:17] VITALS: BP 116/71
[2025-01-22] MEDS: LOVENOX 40 MG SC (18:39)
[2025-01-22] MEDS: ROCEPHIN 1000 MG IV (18:39)
[2025-01-22] MEDS: STERILE WATER FOR INJECTION 10 ML IV (18:41)
[2025-01-22] MEDS: MELATONIN PO (21:58)
[2025-01-22] MEDS: VALIUM PO (21:59)
[2025-01-22 23:06] VITALS: BP 141/80
[2025-01-23] MEDS: SYNTHROID 50 MCG PO (05:46)
[2025-01-23 06:00] VITALS: BMI 18.3
--- NOTE | 2025-01-23 07:28 | W.PN.HOSP.TC ---
Today's Communication/Plan
-
Discharge tomorrow
Assessment / Plan
Assessment / Plan
HPI: 64 y/o male past medical history of Metastatic Nasopharyngeal Cancer and Hypothyroidism who presents with weakness. Patient reports last chemotherapy was on January 13. He reports generalized weakness, poor appetite and weight loss. He
reports it is difficult to eat following extensive radiation at time of his initially diagnosis. He reports slightly worsening cough compared to baseline. He denies fevers, sweats or chills.
#Worsening Cough, possible underlying pneumonia in setting of worsening cough
Chest x-ray shows severe pleural metastatic disease, small malignant right pleural effusion
COVID/influenza negative
He is afebrile, there is no leukocytosis, but there is a left shift, procalcitonin elevated at 0.68
Continue empiric Rocephin and doxycycline D 03/02
Appreciate SPL input, VSE shows aspiration of many consistencies
Patient would like to try minced/moist food with thin liquids
Continue dysphagia therapy
Metastatic (Stage IV B) Nasopharyngeal Carcinoma
-Last Chemotherapy January 13
-Seen by oncology, recommend hospice
-Appreciate hospice nurse, plan for discharge home tomorrow on hospice
Weakness
-Oncology recommends outpatient cancer rehab
-PT rec outpt PT
Hypomagnesemia
-Replete as needed
Hypokalemia
-Replete as needed
Moderate protein calorie malnutrition
-Encourage oral intake, patient states he does not tolerate protein supplements because of the dairy
Chronic Anemia
-Hgb stable
Thrombocytopenia
-Platelet count improving
Hypothyroidism
-Continue levothyroxine
Anxiety / Depression
-Continue escitalopram
DVT proph: SC Lovenox
Code Status: DNR
Updated son on phone 01/21
Total time spent to see the patient on the floor, examine the patient, review data and lab results, discuss treatment plan with patient, nursing staff around 51 minutes.
Physical Exam
General: Appears chronically ill, thin, no acute distress
HEENT: Normocephalic, Atraumatic, EOMI, MMM
Respiratory: Clear to Auscultation bilaterally
Cardiac: Normal S1/S2, Regular Rate and Rhythm
GI: Soft, Nontender, Nondistended, Normal Bowel Sounds
Extremities: No Clubbing, Cyanosis, or Edema
Neuro: Nonfocal/Grossly Intact
Anticipated Discharge: Within 24 hours
Subjective/Interval History
-
Date of Service: January 23, 2025
Patient having minimal oral intake. Reports a lot of effort to eat. No fever, no vomiting.
Objective Data
-
Labs:
Laboratory Results
01/23/25
06:00
Sodium Pending
Potassium Pending
Chloride Pending
Carbon Dioxide Pending
BUN Pending
Creatinine Pending
Glucose Pending
Calcium Pending
Vital Signs:
Vital Signs
Temp Pulse Resp BP Pulse Ox
99.2 F 69 14 141/80 95
01/22/25 23:06 01/22/25 23:06 01/22/25 23:06 01/22/25 23:06 01/22/25 23:06
I&O
01/22/25 01/23/25 01/24/25
06:59 06:59 06:59
Intake Total 800 / 800 1560 / 1560
Output Total 300 / 300
Balance 800 / 800 1260 / 1260
[2025-01-23 07:30] VITALS: BP 107/68
[2025-01-23 09:12] LABS: Blood Urea Nitrogen 16 mg/dl (9-20); Calcium 8.6 mg/dl (8.4-10.2); Carbon Dioxide 26 mmol/L (22-30); Chloride 102 mmol/L (98-107); Estimated Creatinine Clearance 64 ml/min; Glucose 93 mg/dl (70-99); Magnesium 1.5 mg/dl (1.6-2.3); Phosphorus 1.9 mg/dl (2.5-4.5); Potassium 3.7 mmol/L (3.5-5.1); Sodium 137 mmol/L (135-145); eGFR > 60.00
--- NOTE | 2025-01-23 09:18 | CM ---
Received consult for hospice. Sent referral to Marlyn Pritchett who will review and talk with patient and family. Will f/u for plan.
Plan: Case management will continue to follow and assist with discharge planning. Patient and family interested in learning about hospice.
[2025-01-23] MEDS: FOLVITE 1 MG PO (09:46)
[2025-01-23] MEDS: KCL 20 MEQ PO (09:46)
[2025-01-23] MEDS: VIBRAMYCIN 100 MG PO ×2 (09:47→19:01)
[2025-01-23] MEDS: LEXAPRO 10 MG PO (09:47)
[2025-01-23] MEDS: ZOFRAN 4 MG IV ×2 (10:12→19:01)
--- NOTE | 2025-01-23 10:39 | HOSPNOTE ---
Spoke with son and then went to see patient. Hospice was explained and the philosophy and the patient would like to move forward with hospice services. The plan is discharge tomorrow 01/24 and the son will pecan picker patient at 12noon. No equipment is
needed at this time. Attending and CM aware of plan. Once patient is home tomorrow we will admit onto hospice services with DH.
--- NOTE | 2025-01-23 14:10 | W.PN.ONC2 ---
Today's Communication / Plan
-
.
Impression
Impression
weakness, deconditioning from cancer treatment
aspiration
malnutrition
hypomagnesemia
metastatic head/neck cancer
Plan
Plan
Pt tells me that he is opting for discharge home with hospice to focus on comfort goals
Subjective/Objective
Subjective
no new complaints
Vital Signs:
Vital Signs
Temp Pulse Resp BP Pulse Ox
98.4 F 82 17 107/68 96
01/23/25 07:30 01/23/25 07:30 01/23/25 07:30 01/23/25 07:30 01/23/25 10:00
Lab Results:
Laboratory Data
WBC 7.4 10^3/uL (4.8-10.8) 01/21/25 10:12
Hgb 10.1 g/dL (13.0-18.0) L 01/21/25 10:12
Plt Count 79 10^3/uL (130-400) L D 01/21/25 10:12
eGFR > 60.00 01/23/25 08:14
[2025-01-23] MEDS: MAGNESIUM SULFATE 50 IV (14:47)
[2025-01-23 15:27] VITALS: BP 133/76
[2025-01-23] MEDS: POTASSIUM PHOSPHATE 259.0909 MEQ IV (17:26)
[2025-01-23] MEDS: LOVENOX 40 MG SC (17:26)
[2025-01-23] MEDS: STERILE WATER FOR INJECTION 10 ML IV (17:26)
[2025-01-23] MEDS: ROCEPHIN 1000 MG IV (17:26)
--- NOTE | 2025-01-23 18:38 | PTCARENOTE ---
Pt to be discharged tomorrow morning. No complaints at this time. Care ongoing, will continue to monitor.
[2025-01-23] MEDS: VALIUM PO (21:38)
[2025-01-23 23:14] VITALS: BP 122/72
[2025-01-24] MEDS: OCEAN, SALINE MIST 1 SPRAYS NASAL ×3 (01:52→08:34)
[2025-01-24] MEDS: ANESTHETIC LOZENGE 1 LOZENGE PO ×2 (01:58→05:59)
[2025-01-24] MEDS: SYNTHROID 50 MCG PO (05:39)
[2025-01-24 06:00] VITALS: BMI 18.3
[2025-01-24 07:00] VITALS: BP 108/70
--- NOTE | 2025-01-24 07:24 | W.PN.HOSP.TC ---
Today's Communication/Plan
-
Discharge home with hospice today
Assessment / Plan
Assessment / Plan
HPI: 64 y/o male past medical history of Metastatic Nasopharyngeal Cancer and Hypothyroidism who presents with weakness. Patient reports last chemotherapy was on January 13. He reports generalized weakness, poor appetite and weight loss. He
reports it is difficult to eat following extensive radiation at time of his initially diagnosis. He reports slightly worsening cough compared to baseline. He denies fevers, sweats or chills.
#Worsening Cough, possible underlying pneumonia in setting of worsening cough
Chest x-ray shows severe pleural metastatic disease, small malignant right pleural effusion
COVID/influenza negative
He is afebrile, there is no leukocytosis, but there is a left shift, procalcitonin elevated at 0.68
Status post full course of empiric Rocephin and doxycycline D 03/02
Appreciate SPL input, VSE shows aspiration of many consistencies
Patient would like to try minced/moist food with thin liquids
Discharge home with hospice today
Metastatic (Stage IV B) Nasopharyngeal Carcinoma
-Last Chemotherapy January 13
-Seen by oncology, recommend hospice
-Appreciate hospice nurse, plan for discharge home today on hospice
Weakness
-Oncology recommends outpatient cancer rehab
-PT rec outpt PT
Hypomagnesemia
-Replete as needed
Hypokalemia
-Replete as needed
Moderate protein calorie malnutrition
-Encourage oral intake, patient states he does not tolerate protein supplements because of the dairy
Chronic Anemia
-Hgb stable
Thrombocytopenia
-Platelet count improving
Hypothyroidism
-Continue levothyroxine
Anxiety / Depression
-Continue escitalopram
Updated son on phone 01/21
Physical Exam
General: Appears chronically ill, thin, no acute distress
HEENT: Normocephalic, Atraumatic, EOMI, MMM
Respiratory: Clear to Auscultation bilaterally
Cardiac: Normal S1/S2, Regular Rate and Rhythm
GI: Soft, Nontender, Nondistended, Normal Bowel Sounds
Extremities: No Clubbing, Cyanosis, or Edema
Neuro: Nonfocal/Grossly Intact
Anticipated Discharge: Today
Subjective/Interval History
-
Date of Service: January 24, 2025
Patient complains of epistaxis, and not being able to sleep. Epistaxis currently resolved. No fever, no vomiting.
Objective Data
-
Vital Signs:
Vital Signs
Temp Pulse Resp BP Pulse Ox
97.8 F 77 16 108/70 93
01/24/25 07:00 01/24/25 07:00 01/24/25 07:00 01/24/25 07:00 01/24/25 07:00
I&O
01/23/25 01/24/25 01/25/25
06:59 06:59 06:59
Intake Total 1560 / 1560 960 / 960
Output Total 300 / 300
Balance 1260 / 1260 960 / 960
[2025-01-24] MEDS: VIBRAMYCIN 100 MG PO (08:34)
[2025-01-24] MEDS: FOLVITE 1 MG PO (08:34)
[2025-01-24] MEDS: LEXAPRO 10 MG PO (08:34)
--- NOTE | 2025-01-24 11:02 | W.DCSUMMARY ---
Discharge Summary
Discharge Data
Date of Admission: 01/19/25
Date of Discharge: 01/24/25
-
Pending Results: No
Hospital Course
Discharge diagnosis:
Dysphagia with aspiration
Worsening cough with possible pneumonia
Stage IV metastatic nasopharyngeal carcinoma
Weakness
Hypomagnesemia
Hypokalemia
Moderate protein calorie malnutrition
Chronic anemia
Thrombocytopenia
Hypothyroidism
Anxiety/depression
Consults: Oncology
CXR:
1. SEVERE PLEURAL METASTATIC DISEASE throughout the RIGHT HEMITHORAX including a large 7.5 cm malignant mass in the right upper lobe.
2. Multiple pleural and pulmonary metastases in the left lower lung.
3. Small malignant right pleural effusion.
4. Right IJ chemotherapy Mediport in place.
Hospital course:
64-year-old male with a past medical history of stage IV metastatic nasopharyngeal carcinoma, hypothyroidism, and anxiety/depression who was admitted with dysphagia, worsening cough, and weakness. Chest x-ray could not rule out pneumonia. He had
an elevated procalcitonin, and was treated with a 5-day course of Rocephin and doxycycline to cover for possible pneumonia.
Patient was seen in conjunction with speech pathology. VSE shows aspiration of most consistencies. Patient wanted to try a modified diet, and was ordered a minced/moist diet with thin liquids as per speech recommendations. He continued to have
difficulty eating, and had poor oral intake.
Patient was seen in conjunction with oncology. His last chemo was on January 13, 2025. His cancer has progressed extensively despite all types of treatment. Oncology recommends hospice. Palliative care and hospice were explained to the patient.
Patient does not want a feeding tube, he does not want any more treatments. He was seen in conjunction with the hospice nurse, and discharged home with hospice.
Disposition: Home with hospice
Discharge planning: Required 39 minutes
Discharge Plan
-
Patient Disposition: Home (Routine Discharge)
Discharge Diagnosis/Procedures: Stage IV metastatic nasopharyngeal carcinoma, chronic aspiration, probable pneumonia
Condition: Serious
Diet: Chop all food
Additional Diets: Comfort feeds
Activity: As tolerated
Other Services: Hospice
Referrals:
Cody Leon DO [Family Provider] - in one week
Prescriptions:
Continued
prochlorperazine maleate 10 MG tablet
10 mg PO Q6HPRN PRN (Reason: nausea/vomiting)
escitalopram oxalate 10 MG tablet
10 mg PO DAILY
loratadine [Claritin] 10 mg Tablet
10 mg PO DAILY
oxycodone 5 mg Tablet
5 mg PO DAILYPRN PRN (Reason: severe pain)
Medical Marijuana
1 - 2 puff inhalation DAILYPRN PRN (Reason: anxiety/stress)
diazepam [Valium] 10 mg Tablet
5 mg PO HS
ondansetron HCl 8 mg Tablet
8 mg PO [id number] PRN (Reason: nausea)
folic acid 1 mg Tablet
1 mg PO DAILY
potassium chloride 20 mEq Tablet Extended Release
20 meq PO DAILY
levothyroxine [Synthroid] 50 mcg Tablet
50 mcg PO DAILY
Discharge Orders:
Discharge Patient (As Directed); Ordered 01/24/25
Ordered By: Jose Baker
Discharge Date and Time
Discharge Date/Time: 01/24/25 10:39
Print Language: IVORIAN
== END 2025-01-24 10:39 | disposition home or self-care (01) | DRG 178 ==
LOC: 3 WEST ACU 16:56
PROVIDERS: Nurse Practitioner Gerontology; Physician Assistant Medical; ADMITTING PHYSICIAN Student in an Organized Health Care Education/Training Program; ATTENDING PHYSICIAN Family Medicine; CONSULT PHYSICIAN Internal Medicine Hematology & Oncology; EMERGENCY PHYSICIAN Student in an Organized Health Care Education/Training Program; FAMILY PHYSICIAN Family Medicine
DX: J69.0 Pneumonitis due to inhalation of food and vomit (principal); C78.00 Secondary malignant neoplasm of unspecified lung; C78.2 Secondary malignant neoplasm of pleura; E44.0 Moderate protein-calorie malnutrition; J91.0 Malignant pleural effusion; C11.9 Malignant neoplasm of nasopharynx, unspecified; E83.42 Hypomagnesemia; E87.6 Hypokalemia; D64.9 Anemia, unspecified; D69.6 Thrombocytopenia, unspecified; E03.9 Hypothyroidism, unspecified; F32.A Depression, unspecified; F41.9 Anxiety disorder, unspecified; Z66 Do not resuscitate
CPT/HCPCS: 71046; 74230; 80048; 81003; 81015; 83735; 84100; 84145; 84443; 85025; 85027; 87070; 87205; 87502; 87811; 92526; 92610; 92611; 93005; 96360; 96361; 97162; 99285; 99406